=== PATIENT | male | born 1940 | race Caucasian/White ===

== ENCOUNTER 2022-04-04 21:33 | Inpatient (IN) | payer OTHER ==
[2022-04-04] MEDS ORDERED: ACETAMINOPHEN 500 MG TAB ONE (22:39)
[2022-04-04] MEDS ORDERED: NA CHLORIDE 0.9% 1,000 ML ONE (22:39)
[2022-04-04] MEDS ORDERED: CEFTRIAXONE 1000 MG/VIAL ONE (22:39)
[2022-04-04 23:23] LABS: Absolute Lymphocytes (CBC) 0.4 K/uL (0.7-4.9); Hematocrit 40.9 % (39.6-49.0); Lymphocytes % 5.7 % (15.3-44.8); MCV 96.6 fL (80-100); MPV 8.4 fL (7.6-11.3); Protime INR 1.04; RBC Red Blood Cell Count 4.24 M/uL (4.33-5.43)
[2022-04-04 23:39] LABS: Albumin 3.3 g/dL (3.4-5.0); Bilirubin Direct 0.2 mg/dL (0-0.2); Bilirubin Total 0.5 mg/dL (0.2-1.0); Magnesium 2.1 mg/dL (1.8-2.4); Potassium 3.8 mmol/L (3.5-5.1); Protein, Total 7.5 g/dL (6.4-8.2)
[2022-04-04 23:43] LABS: Troponin High Sensitivity 66.3 pg/mL (<58.9)
--- NOTE | 2022-04-05 00:02 | ER ---
Nurse's Notes [facility] Name: Shaheen Riddle Age: 82 yrs Sex: Male : 1940 Arrival Date: 04/04/2022 Time: 21:36 Bed 14 Private MD: Diagnosis: Altered mental status, unspecified;Fever, unspecified;Dysuria;Coronavirus infection, unspecified;SARS-associated coronavirus as the cause of diseases classified elsewhere;Dementia in other diseases classified elsewhere without behavioral disturbance Presentation: 04/04 21:47 Chief complaint: EMS states: toned out by stating PT has been confused and weak lg3 over the past 2 days. earlier this evening he was leaning against the wall at home and just slid down and landed on his butt. Coronavirus screen: Client denies travel out of the [place] in the last 14 days. At this time, the client does not indicate any symptoms associated with coronavirus-19. Ebola Screen: No symptoms or risks identified at this time. Initial Sepsis Screen: Does the patient meet any 2 criteria? Temp <36.0*C (96.8*F)) or > 38.3*C (100.9*F). Altered Mental Status. Yes Does the patient have a suspected source of infection? No. Patient's initial sepsis screen is negative. Risk Assessment: Do you want to hurt yourself or someone else? Patient reports no desire to harm self or others. Onset of symptoms was April 02, 2022. 21:47 Method Of Arrival: EMS: [facility] lg3 21:47 Acuity: [place] 3 lg3 Triage Assessment: 21:51 General: Appears in no apparent distress. comfortable, Behavior is calm, cooperative. lg3 Pain: Denies pain. EENT: No deficits noted. No signs and/or symptoms were reported regarding the EENT system. Neuro: Level of Consciousness is awake, obeys commands, confused, Oriented to person, place, situation, Speech is normal. Cardiovascular: No deficits noted. Denies chest pain, shortness of breath, Capillary refill < 3 seconds Clubbing of nail beds is absent JVD is absent Patient's skin is warm and dry. Respiratory: No deficits noted. Airway is patent Trachea midline Respiratory effort is even, unlabored, Respiratory pattern is regular, symmetrical, Breath sounds are clear bilaterally. Denies cough, shortness of breath labored breathing. GI: No deficits noted. No signs and/or symptoms were reported involving the gastrointestinal system. Abdomen is round non-distended, Bowel sounds present X 4 quads. : No deficits noted. No signs and/or symptoms were reported regarding the genitourinary system. Derm: No deficits noted. No signs and/or symptoms reported regarding the dermatologic system. Skin is intact, is healthy with good turgor, Skin is dry, Skin is normal, Skin temperature is hot. Musculoskeletal: Reports generalized weakness. Historical: - Allergies: 21:51 No Known Allergies; lg3 - Home Meds: 21:51 Unable to obtain [Active]; lg3 - PMHx: 21:51 Hypertensive disorder; lg3 - PSHx: 21:51 Unable to Obtain; lg3 - Immunization history:: Adult Immunizations unknown, unable to obtain. - Social history:: Smoking status: Patient reports the use of cigarette tobacco products, cigars, Patient uses alcohol, occasionally. Screenin:55 Abuse screen: Denies threats or abuse. Denies injuries from another. Nutritional lg3 screening: No deficits noted. Tuberculosis screening: No symptoms or risk factors identified. Fall Risk Fall in past 12 months (25 points). Secondary diagnosis (15 points) impaired mobility, Mental Status- Overestimates/Forgets Limitations (15 pts.). Total Webster Fall Scale indicates High Risk Score (45 or more points). Fall prevention measures have been instituted. Side Rails Up X 2 Frequent Obs/Assessments Occuring As available patient and family educated on Fall Prevention Program and Strategies. Assessment: 21:54 General: see triage assessment . lg3 23:24 Reassessment: Patient appears in no apparent distress at this time. No changes from lg3 previously documented assessment. Patient and/or family updated on plan of care and expected duration. Pain level reassessed. Patient is alert, oriented x 3, equal unlabored respirations, skin warm/dry/pink. 04/05 00:45 Reassessment: Patient appears in no apparent distress at this time. No changes from lg3 previously documented assessment. Patient and/or family updated on plan of care and expected duration. Pain level reassessed. Patient is alert, oriented x 3, equal unlabored respirations, skin warm/dry/pink. 00:49 General: attempted to call report. nurse not avaliable. lg3 Vital Signs: 04/04 21:47 BP 189 / 73; Pulse 56; Resp 18 S; Temp 102.4(O); Pulse Ox 98% on R/A; Weight 81.65 kg lg3 (R); Height 5 ft. 10 in. (177.80 cm) (R); Pain 0/10; 23:24 Temp 99.6(O); lg3 23:24 Temp 99.6(O); lg3 04/05 00:46 BP 178 / 84; Pulse 55; Resp 17 S; Pulse Ox 98% on R/A; lg3 04/04 21:47 Body Mass Index 25.83 (81.65 kg, 177.80 cm) lg3 ED Course: 04/04 21:36 Patient arrived in ED. lg3 21:46 Nathan [facility] MD is Attending Physician. harpal 21:47 Barb Ashton RN is Primary Nurse. lg3 21:51 Triage completed. lg3 21:51 Arm band placed on right wrist. lg3 21:55 Patient has correct armband on for positive identification. Placed in gown. Bed in low lg3 position. Call light in reach. Side rails up X2. Client placed on continuous cardiac and pulse oximetry monitoring. NIBP monitoring applied. medical record consultant on. Door closed. Noise minimized. 22:27 Lactate Sent. lg3 22:27 Blood Culture Adult (2) Sent. lg3 22:27 Lipase Sent. lg3 22:27 Flu Sent. lg3 22:27 SARS-COV-2 RT PCR (Document "Date of Onset" if Symptomatic) Sent. lg3 22:27 Basic Metabolic Panel Sent. lg3 22:27 CBC with Diff Sent. lg3 22:27 LFT's Sent. lg3 22:27 Magnesium Sent. lg3 22:27 NT PRO-BNP Sent. lg3 22:27 PT-INR Sent. lg3 22:27 Troponin HS Sent. lg3 22:27 Inserted saline lock: 20 gauge in right antecubital area, using aseptic technique. lg3 Blood collected. 22:40 XRAY Chest (1 view) In Process Unspecified. EDMS 23:09 Chest Abd Pelvis Wo Con In Process Unspecified. EDMS 04/05 00:00 Ozzie Waters MD is Hospitalizing Provider. harpal 00:59 No provider procedures requiring assistance completed. Patient admitted, IV remains in lg3 place. intact, No redness/swelling at site. Administered Medications: 04/04 22:30 Drug: NS 0.9% 1000 ml Route: IV; Rate: 1 bolus; Site: right antecubital; lg3 04/05 00:47 Follow up: Response: No adverse reaction; IV Status: Completed infusion; IV Intake: lg3 1000ml 04/04 22:30 Drug: Rocephin (cefTRIAXone) 1 grams Route: IV; Rate: per protocol; Site: right lg3 antecubital; 22:47 Follow up: Response: No adverse reaction; IV Status: Completed infusion; IV Intake: 09qdtq0 22:30 Drug: Tylenol 1000 mg Route: PO; lg3 23:24 Follow up: Temp 99.6 Oral; Response: No adverse reaction; Temperature is decreased lg3 04/05 00:25 Not Given (medication not avaliablee): Zithromax (azithromycin) 500 mg IVPB once over 1 lg3 hrs; mix in 250 mL NS 00:25 Drug: Pepcid (famotidine) 40 mg Route: IVP; Site: right antecubital; lg3 00:26 Follow up: Response: No adverse reaction lg3 00:25 Drug: Aspirin Chewable Tablet 162 mg Route: PO; lg3 00:26 Follow up: Response: No adverse reaction lg3 00:26 Not Given (medication not avaliablee): Bebtelovimab 175 mg IV at per protocol once; as lg3 a single dose Medication: 00:59 VIS not applicable for this client. lg3 Intake: 04/04 22:47 IV: 10ml; Total: 10ml. lg3 04/05 00:47 IV: 1000ml; Total: 1010ml. lg3 Outcome: 00:02 Decision to Hospitalize by Provider. harpal 00:59 Admitted to Tele accompanied by tech, via wheelchair, room 404, Report called to [facility] 00:59 Condition: stable 00:59 Instructed on the need for admit, Demonstrated understanding of instructions. 01:50 Patient left the ED. lg3 Signatures: Dispatcher [employer] EDNathan Valenzuela MD MD cha Gibson, Lacie, RN RN lg3
--- NOTE | 2022-04-05 00:03 | EDPHYS ---
Physician Documentation [facility] Name: Shaheen Riddle Age: 82 yrs Sex: Male : 1940 Arrival Date: 04/04/2022 Time: 21:36 Bed 14 Private MD: ED Physician Nathan Henderson HPI: 04/04 23:55 This 82 yrs old Male presents to ER via EMS with complaints of WEAK, FEVER , harpal FALL AND AMS. 23:55 FEVER , WEAK. The patient presents with confusion, decreased responsiveness. Onset: The harpal symptoms/episode began/occurred 2 day(s) ago. Possible causes: low blood sugar, sepsis, the patient has had a history of a fever. Associated signs and symptoms:. Current symptoms: In the emergency department the patient's symptoms are unchanged from the initial presentation, despite home interventions. The patient reports fever, that was measured at 102 degrees Fahrenheit. Modifying factors: there are no obvious modifying factors. Patient's baseline: Neuro: alert and fully oriented, orientated to person, place, time, Motor: no deficits, Ambulation: walks with assist only, uses walker, Speech: normal, normal for age. Historical: - Allergies: 21:51 No Known Allergies; lg3 - Home Meds: 21:51 Unable to obtain [Active]; lg3 - PMHx: 21:51 Hypertensive disorder; lg3 - PSHx: 21:51 Unable to Obtain; lg3 - Immunization history:: Adult Immunizations unknown, unable to obtain. - Social history:: Smoking status: Patient reports the use of cigarette tobacco products, cigars, Patient uses alcohol, occasionally. ROS: 23:56 Eyes: Negative for injury, pain, redness, and discharge, ENT: Negative for injury, harpal pain, and discharge, Neck: Negative for injury, pain, and swelling, Cardiovascular: Negative for chest pain, palpitations, and edema, Respiratory: Negative for shortness of breath, cough, wheezing, and pleuritic chest pain, Abdomen/GI: Negative for abdominal pain, nausea, vomiting, diarrhea, and constipation, Back: Negative for injury and pain, : Negative for injury, bleeding, discharge, and swelling, MS/Extremity: Negative for injury and deformity, Skin: Negative for injury, rash, and discoloration, Psych: Negative for depression, anxiety, suicide ideation, homicidal ideation, and hallucinations, Allergy/Immunology: Negative for hives, rash, and allergies, Endocrine: Negative for neck swelling, polydipsia, polyuria, polyphagia, and marked weight changes, Hematologic/Lymphatic: Negative for swollen nodes, abnormal bleeding, and unusual bruising. 23:56 Constitutional: Positive for chills, fatigue, fever, malaise. 23:56 Neuro: Positive for altered mental status, weakness. Exam: 23:56 Head/Face: Normocephalic, atraumatic. Eyes: Pupils equal round and reactive to light, harpal extra-ocular motions intact. Lids and lashes normal. Conjunctiva and sclera are non-icteric and not injected. Cornea within normal limits. Periorbital areas with no swelling, redness, or edema. ENT: Nares patent. No nasal discharge, no septal abnormalities noted. Tympanic membranes are normal and external auditory canals are clear. Oropharynx with no redness, swelling, or masses, exudates, or evidence of obstruction, uvula midline. Mucous membranes moist. Neck: Trachea midline, no thyromegaly or masses palpated, and no cervical lymphadenopathy. Supple, full range of motion without nuchal rigidity, or vertebral point tenderness. No Meningismus. Chest/axilla: Normal chest wall appearance and motion. Nontender with no deformity. No lesions are appreciated. Cardiovascular: Regular rate and rhythm with a normal S1 and S2. No gallops, murmurs, or rubs. Normal PMI, no JVD. No pulse deficits. Respiratory: Lungs have equal breath sounds bilaterally, clear to auscultation and percussion. No rales, rhonchi or wheezes noted. No increased work of breathing, no retractions or nasal flaring. Back: No spinal tenderness. No costovertebral tenderness. Full range of motion. Male : Normal genitalia with no discharge or lesions. Skin: Warm, dry with normal turgor. Normal color with no rashes, no lesions, and no evidence of cellulitis. 23:56 Cardiovascular: Rate: normal, Rhythm: regular, Pulses: Pulses are 4+ in bilateral radial, brachial, femoral, popliteal, posterior tibial and and dorsalis pedis arteries.. Heart sounds: normal, normal S1and S2, no S3 or S4, no murmur, no rub, no gallop, Edema: is not appreciated, JVD: is not appreciated. 23:56 ECG was reviewed by the Attending Physician. Vital Signs: 21:47 BP 189 / 73; Pulse 56; Resp 18 S; Temp 102.4(O); Pulse Ox 98% on R/A; Weight 81.65 kg lg3 (R); Height 5 ft. 10 in. (177.80 cm) (R); Pain 0/10; 23:24 Temp 99.6(O); lg3 23:24 Temp 99.6(O); lg3 04/05 00:46 BP 178 / 84; Pulse 55; Resp 17 S; Pulse Ox 98% on R/A; 3 04/04 21:47 Body Mass Index 25.83 (81.65 kg, 177.80 cm) lg3 MDM: 04/04 21:46 Patient medically screened. [facility] 04/04 21:50 Order name: Basic Metabolic Panel; Complete Time: 23:44 [facility] 04/04 21:50 Order name: CBC with Diff; Complete Time: 00:43 [facility] 04/04 21:50 Order name: LFT's; Complete Time: 23:44 [facility] 04/04 21:50 Order name: Magnesium; Complete Time: 23:44 [facility] 04/04 21:50 Order name: NT PRO-BNP; Complete Time: 23:44 [facility] 04/04 21:50 Order name: PT-INR; Complete Time: 23:30 [facility] 04/04 21:50 Order name: Troponin HS; Complete Time: 23:44 [facility] 04/04 21:50 Order name: XRAY Chest (1 view) [facility] 04/04 21:50 Order name: SARS-COV-2 RT PCR (Document "Date of Onset" if Symptomatic); Complete Time: [facility] 23:30 04/04 21:50 Order name: Flu; Complete Time: 00:08 [facility] 04/04 21:50 Order name: Lipase; Complete Time: 23:44 [facility] 04/04 21:50 Order name: Blood Culture Adult (2) [facility] 04/04 21:50 Order name: Lactate; Complete Time: 23:44 [facility] 04/04 23:35 Order name: Manual Differential; Complete Time: 00:43 EDMS 04/04 21:50 Order name: EKG; Complete Time: 21:51 [facility] 04/04 21:50 Order name: Cardiac monitoring; Complete Time: 21:56 [facility] 04/04 21:50 Order name: EKG - Nurse/Tech; Complete Time: 21:58 [facility] 04/04 21:50 Order name: IV Saline Lock; Complete Time: : [facility] 04/04 21:50 Order name: Labs collected and sent; Complete Time: : [facility] 04/04 21:50 Order name: O2 Per Protocol; Complete Time: : [facility] 04/04 21:50 Order name: O2 Sat Monitoring; Complete Time: : [facility] 04/04 23:09 Order name: Chest Abd Pelvis Wo Con EDMS EC: Rate is 56 beats/min. Rhythm is regular. QRS [place] is Normal. TN interval is normal. QRS harpal interval is normal. QT interval is normal. No Q waves. T waves are Normal. No ST changes noted. Clinical impression: Sinus bradycardia and No evidence of ischemia. Interpreted by me. Reviewed by me. Administered Medications: 22:30 Drug: NS 0.9% 1000 ml Route: IV; Rate: 1 bolus; Site: right antecubital; lg3 04/05 00:47 Follow up: Response: No adverse reaction; IV Status: Completed infusion; IV Intake: lg3 1000ml 04/04 22:30 Drug: Rocephin (cefTRIAXone) 1 grams Route: IV; Rate: per protocol; Site: right lg3 antecubital; 22:47 Follow up: Response: No adverse reaction; IV Status: Completed infusion; IV Intake: [id number] 22:30 Drug: Tylenol 1000 mg Route: PO; lg3 23:24 Follow up: Temp 99.6 Oral; Response: No adverse reaction; Temperature is decreased lg3 04/05 00:25 Not Given (medication not avaliablee): Zithromax (azithromycin) 500 mg IVPB once over 1 lg3 hrs; mix in 250 mL NS 00:25 Drug: Pepcid (famotidine) 40 mg Route: IVP; Site: right antecubital; lg3 00:26 Follow up: Response: No adverse reaction lg3 00:25 Drug: Aspirin Chewable Tablet 162 mg Route: PO; lg3 00:26 Follow up: Response: No adverse reaction lg3 00:26 Not Given (medication not avaliablee): Bebtelovimab 175 mg IV at per protocol once; as lg3 a single dose Disposition Summary: 04/05/22 00:02 Hospitalization Ordered Hospitalization Status: Inpatient Admission harpal Provider: Ozzie Waters cha Location: Telemetry/MedSurg (Inpatient) harpal Condition: Fair harpal Problem: new harpal Symptoms: have improved harpal Bed/Room Type: Standard harpal Room Assignment: 404(04/05/22 00:38) cg Diagnosis - Altered mental status, unspecified harpal - Fever, unspecified harpal - Dysuria harpal - Coronavirus infection, unspecified harpal - SARS-associated coronavirus as the cause of diseases classified elsewhere harpal - Dementia in other diseases classified elsewhere without behavioral disturbance harpal Forms: - Medication Reconciliation Form harpal - SBAR form harpal Signatures: Dispatcher [employer] EDMS Nathan [facility] MD MD cha Attema, Lee, DRYWALL FOREMAN-C DRYWALL FOREMAN-Kemi1 Lillian Ozuna, RN RN Barb Ashton RN RN lg3 Corrections: (The following items were deleted from the chart) 04/04 23:09 21:51 Stone Protocol+CT.RAD.BRZ ordered. EDMA EDMA 04/05 00:28 04/04 23:57 Dian ordered. lg3 lg3 04/05 00:38 00:02 harpal cg
[2022-04-05 00:12] LABS: Blood Morphology Comment NOT SEEN (NOT SEEN); Platelet Estimate ADEQ
[2022-04-05] MEDS ORDERED: ASPIRIN 81 MG CHEWABLE TABLET ONE (00:34)
[2022-04-05] MEDS ORDERED: ONDANSETRON 4 MG/2 ML VIAL IV PRN (01:29)
--- NOTE | 2022-04-05 01:51 | P.HP ---
Certification for Inpatient Patient admitted to: Observation With expected LOS: <2 Midnights Patient will require the following post-hospital care: None Practitioner: I am a practitioner with admitting privileges, knowledge of patient current condition, hospital course, and medical plan of care. Services: Services provided to patient in accordance with Admission requirements found in Title 42 Section 412.3 of the Code of Federal Regulations Patient History Date of Service: 04/05/22 Primary Care Provider: Dr. Vázquez Reason for admission: COVID-19, falls, elevated troponin History of Present Illness: 82-year-old male with history of hypertension, Alzheimer/dementia presents the emergency department for weakness/falls. His who is at bedside reports that twice in the last 2 days he is fallen at home as his legs "gave out on him". He was also noted to be febrile upon presentation to the emergency department. Code sepsis was called. Patient was evaluated in the emergency department his labs were significant for white blood cell count of 6.7 creatinine 1.33 GFR 54 glucose 116 high-sensitivity troponin 66.3 elevated BNP 6875 COVID-19 positive. Patient denies any constitutional or systemic symptoms of infection, did not realize that he was febrile at home. He is currently saturating 92 to 94% on room air. CT of chest abdomen pelvis was obtained in the emergency department which did reveal incidental finding of a thyroid nodule, this was relayed to patient and family. He was given aspirin, Rocephin, Tylenol, Pepcid and IV fluids in the emergency department. ED provider wishes to admit for further evaluation and management of COVID-19 viral illness: Repeated falls, elevated troponin. Allergies No Known Allergies Allergy (Unverified 04/05/22 01:28) - Past Medical/Surgical History Has patient received pneumonia vaccine in the past: Yes Diabetic: No -: hypertension -: Alzheimer/dementia -: None Psychosocial/ Personal History: Patient lives at home with his - Family History Father -: Other (see notes) Notes: ulcers Mother -: Cancer - Social History Smoking Status: Current every day smoker Alcohol use: Yes CD- Drugs: No Caffeine use: Yes Place of Residence: Home Review of Systems 10-point ROS is otherwise unremarkable General: Weakness Physical Examination - Vital Signs Temperature: 97.3 F Blood Pressure: 195/83 Pulse: 51 Respirations: 18 Pulse Ox (%): 91 - Physical Exam General: Alert, In no apparent distress, Oriented x3 HEENT: Atraumatic, PERRLA, Mucous membr. moist/pink, EOMI, Sclerae nonicteric Neck: Supple, 2+ carotid pulse no bruit, No LAD, Without JVD or thyroid abnormality Respiratory: Clear to auscultation bilaterally, Normal air movement Cardiovascular: Regular rate/rhythm, Normal S1 S2 Gastrointestinal: Normal bowel sounds, No tenderness Musculoskeletal: No tenderness Integumentary: No rashes Neurological: Normal speech, Normal strength at 5/5 x4 extr, Normal tone, Normal affect - Studies Laboratory Data (last 24 hrs) 04/04/22 22:15: PT 11.4, INR 1.04 04/04/22 22:15: WBC 6.70, Hgb 13.6, Hct 40.9, Plt Count 204 04/04/22 22:15: Sodium 141, Potassium 3.8, BUN 21 H, Creatinine 1.33 H, Glucose 116 H, Magnesium 2.1, Total Bilirubin 0.5, AST 41 H, ALT 27, Alkaline Phosphatase 84, Lipase 89 Microbiology Data (last 24 hrs): 04/04/22 22:24 Nasopharnyx Influenza Type A Antigen Screen - Final 04/04/22 22:24 Nasopharnyx Influenza Type B Antigen Screen - Final Assessment and Plan - Plan Assessment: COVID-19 viral illness Repeated falls Elevated troponin/BNP Incidental findingthyroid nodule Hypertension Alzheimer's dementia Plan: COVID-19 viral illness: Patient currently on room air, will continue to monitor daily over saturations. Tested positive for the first time last night, he is vaccinated with first 2 Pfizer shots. He denies any shortness of breath currently of the throat and this is likely contributing to his weakness, falls. Repeated falls: Patient evaluated by physical therapy, he reportedly uses a walker at home and had 2 falls in the past 2 days with his legs "giving out on him". Await recommendations. Elevated troponin/BNP: No known history of congestive heart failure does not appear to be grossly overloaded. Will obtain echocardiogram and cardiology consult we will trend troponin levels. Incidental findingthyroid nodule: Discussed with patient, daughter and at bedside regarding the need for outpatient ultrasound of the thyroid. Hypertension: Continue home medications once verified. Alzheimer's dementia: Continue home medications once verified. DVT PPX:Lovenox Code status: Full Discharge Plan: Home Plan to discharge in: 24 Hours - Advance Directives Does patient have a Living Will: No Does patient have a Durable POA for Healthcare: Yes - Code Status/Comfort Care Code Status Assessed: Yes (Full code) Critical Care: No Time Spent Managing Pts Care (In Minutes): 70
[2022-04-05 03:47] LABS: Absolute Lymphocytes (CBC) 0.9 K/uL (0.7-4.9); Hematocrit 37.4 % (39.6-49.0); Lymphocytes % 13.4 % (15.3-44.8); MCV 95.1 fL (80-100); MPV 7.8 fL (7.6-11.3); RBC Red Blood Cell Count 3.93 M/uL (4.33-5.43)
[2022-04-05 04:14] LABS: Albumin 2.8 g/dL (3.4-5.0); Bilirubin Total 0.4 mg/dL (0.2-1.0); Potassium 3.6 mmol/L (3.5-5.1); Protein, Total 6.2 g/dL (6.4-8.2)
[2022-04-05 04:23] LABS: Troponin High Sensitivity 67.3 pg/mL (<58.9)
[2022-04-05] MEDS: HYDRALAZINE HCL 20 MG/ML VIAL IV PRN ×3 (08:36→22:08)
[2022-04-05] MEDS: ENOXAPARIN 40 MG/0.4 ML SQ SCH (08:36)
[2022-04-05] MEDS: ASPIRIN EC 81 MG TAB PO SCH (08:36)
[2022-04-05] MEDS ORDERED: HYDRALAZINE HCL 25 MG TABLET PO ONE (13:20)
[2022-04-05] MEDS ORDERED: LOSARTAN POTASSIUM 50 MG TABLET PO ONE (13:30)
--- NOTE | 2022-04-05 13:40 | CON ---
History Of Present Illness: Admitted to Dr. Waters with COVID, was found to have elevated troponin. I was consulted. No cardiac symptoms reported. Has been having weakness and fever. Denied any nause a, vomiting, diaphoresis, PND, orthopnea, pedal edema, palpitations, or syncope. Past Medical History: Only includes hypertension. Allergies: NONE. Review of Systems: Negative. Social History: Negative. Family History: Negative. Medications: Listed by Dr. Waters. Physical Examination: General: He was hypertensive. Vital Signs: Blood pressure 180/80, sinus rhythm. No acute distress. Examination that was done the admitting physician was within normal limits. Diagnostic Data: Showed a troponin of 67. BNP is 6725. Rest of the blood work was unremarkable. E KG and chest x-ray are negative. Impression And Plan: 1.Elevated troponin and BNP secondary to COVID. Echocardiogram is pending. 2.Hypertension, needs to be better controlled. I will discuss the case further with Dr. Waters. This is not an acute coronary syndrome. This is demand ischemia with COVID. No plan for any further cardiac workup at this point, except for the echo. NATE/JOSE G Voice ID: [id number] Report ID: [id number]
--- NOTE | 2022-04-05 15:35 | RAD REPORT ---
EXAM DESCRIPTION: Chest Abd Pelvis Wo Con 04/04/2022 11:35 PM CDT CLINICAL HISTORY: 82 years, Male, flank COMPARISON: None TECHNIQUE: Multiple transaxial tomograms of the chest, abdomen and pelvis were performed from the kika ng bases to the symphysis pubis 5 mm slice thickness at 5 mm interval reconstruction, without adminis tration of IV and oral contrast. Multiplanar reformats in the sagittal and coronal plane were generated and reviewed. This exam was performed according to our departmental dose-optimization protocol, which includes auto mated exposure control, adjustment of the mA and/or kV according to patient size and/or use of iterat antonette reconstruction technique. FINDINGS: The lack of IV and oral contrast limits evaluation of solid organs, subtle lesions cannot be excluded. In addition the presence of upper extremity within the [id number] imaging limits the evaluation. Chest: There is prominence of the thyroid gland with right posterior deep right nodule measuring 1.8 x 1.9 cm on image 5 and left side measuring 1.7 x 1.7 cm on image 2. The lung demonstrate minimal dependent atelectatic changes. Mild elevation of the right hemidiaphragm . The trachea mainstem bronchus demonstrate to be within normal limits. There is no evidence for pleura l effusions. There is very minimal trace of pericardial effusion. The thoracic aorta demonstrate intimal calcification. No evidence for significant aneurysm. The heart is not enlarged. There are coronary artery calcifications. There is no significant mediastinal/or hilar lymphadenopathy. The axillary regions demonstrate to be clear. There are minimal bilateral gynecomastia. The bone windows demonstrate no significant fractures/or skeletal lesions. Abdomen and pelvis: Grossly the unopacified liver demonstrate a probable small cyst dome medial right hepatic lobe measuring approximately 1.3 cm on image 41. Otherwise the liver, gallbladder, pancreas, spleen and adrenal glands demonstrate to be within normal limits, no significant focal lesions were identified. The kidneys demonstrate grossly unremarkable. Minimal perinephric haziness suggesting fluid/or inflam mation There is no evidence for nephrolithiasis and/or hydronephrosis. There are vascular calcifica tions of the renal vessels. Grossly the unopacified stomach, small bowel and large bowel demonstrate to be within normal limits. There is no evidence for bowel dilatation/or free air. The appendix is unremarkable. There is minimal diverticulosis within the left site colon/sigmoid colon. The urinary bladder demonstrate to be within normal limits. The prostate gland is normal. The aorta d emonstrate atherosclerotic disease extending into the aortic bifurcation. There is no retroperitone al lymphadenopathy. There is no evidence for ascites. The bone windows demonstrate mild bony osteop enia with multilevel degenerative disc disease. IMPRESSION: No evidence for nephrolithiasis and/or hydronephrosis. Minimal perinephric haziness suggesting fluid/or inflammation. Minimal diverticulosis without evidence for acute diverticulitis. Mild bony osteopenia with multilevel degenerative disc disease. 1.9 cm incidental thyroid nodule. Recommend thyroid US. Minimal trace of pericardial effusion. Coronary artery calcifications. Probable small cyst dome medial right hepatic lobe. Electronically signed by: Cedrick Dacosta MD 04/04/2022 11:41 PM CDT Due to temporary technical issues with the PACS/Fluency reporting system, reports are being signed by the in house radiologists without review as a courtesy to insure prompt reporting. The interpreting radiologist is fully responsible for the content of the report.
[2022-04-05] MEDS: LOSARTAN POTASSIUM 50 MG TABLET PO SCH (20:42)
[2022-04-05] MEDS: HYDRALAZINE HCL 25 MG TABLET PO SCH (20:42)
[2022-04-05] MEDS: ATORVASTATIN 40 MG TAB PO SCH (20:42)
[2022-04-06 04:11] LABS: Bilirubin Total 0.7 mg/dL (0.2-1.0); Potassium 3.2 mmol/L (3.5-5.1); Protein, Total 6.7 g/dL (6.4-8.2)
[2022-04-06 04:17] LABS: Absolute Lymphocytes (CBC) 1.3 K/uL (0.7-4.9); Hematocrit 43.1 % (39.6-49.0); Lymphocytes % 19.4 % (15.3-44.8); MCV 93.9 fL (80-100); MPV 8.4 fL (7.6-11.3); RBC Red Blood Cell Count 4.59 M/uL (4.33-5.43)
[2022-04-06] MEDS: HYDRALAZINE HCL 20 MG/ML VIAL IV PRN ×2 (05:24→17:16)
--- NOTE | 2022-04-06 07:03 | ECHO ---
HEIGHT: 5 ft 10 in WEIGHT: 187 lb 1 oz DATE OF STUDY: 04/05/[address]: Misael Rangel NP 2-DIMENSIONAL: YES M.MODE: YES DOPPLER: YES COLOR FLOW: YES TDS: PORTABLE: YES DEFINITY: BUBBLE STUDY: DIAGNOSIS: ELEVATED BNP/ TROPONIN CARDIAC HISTORY: CATHERIZATION: NO SURGERY: NO PROSTHETIC VALVE: NO PACEMAKER: NO MEASUREMENTS (cm) DIASTOLIC (NORMALS) SYSTOLIC (NORMALS) IVSd 1.4 (0.6-1.2) LA Diam 4.4 (1.9-4.0) LVEF 60% LVIDd 5.4 (3.5-5.7) LVIDs 3.6 (2.0-3.5) %FS 32% LVPWd 1.4 (0.6-1.2) Ao Diam 3.3 (2.0-3.7) 2 DIMENSIONAL ASSESSMENT: RIGHT ATRIUM: NORMAL LEFT ATRIUM: ENLARGED RIGHT VENTRICLE: NORMAL LEFT VENTRICLE: LEFT VENTRICULAR HYPERTROPHY (MILD) TRICUSPID VALVE: MILD TRICUSPID REGURGITATION MITRAL VALVE: 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 LEFT ATRIAL ENLARGEMENT. 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 RECOMMEND TRANSESOPHAGEAL ECHOCARDIOGRAM. TECHNOLOGIST: HUGH RATLFIF
[2022-04-06] MEDS ORDERED: POTASSIUM 25 MEQ EFFERV TAB PO ONE (09:00)
[2022-04-06] MEDS ORDERED: cloNIDine HCL 0.1 MG TAB PO ONE (09:02)
[2022-04-06] MEDS: ASPIRIN EC 81 MG TAB PO SCH (09:40)
[2022-04-06] MEDS: HYDRALAZINE HCL 25 MG TABLET PO SCH ×3 (09:40→21:43)
[2022-04-06] MEDS: ENOXAPARIN 40 MG/0.4 ML SQ SCH (09:40)
[2022-04-06] MEDS: LOSARTAN POTASSIUM 50 MG TABLET PO SCH ×2 (09:40→21:43)
--- NOTE | 2022-04-06 10:41 | RAD REPORT ---
EXAM DESCRIPTION: RAD - Chest Single View - 04/04/2022 10:38 pm CLINICAL HISTORY: COUGH Chest pain. COMPARISON: No comparisons FINDINGS: Portable technique limits examination quality. Moderate bilateral pulmonary opacities likely pulmonary edema. The heart is mildly enlarged. No displ aced fractures. IMPRESSION: Mild CHF.
--- NOTE | 2022-04-06 12:54 | P.PN ---
Subjective Date of Service: 04/06/22 Patient states he is feeling better. Patient still has cough and congestion and his blood pressure is elevated. We will anticipate discharge tomorrow if his blood pressure stabilizes. Continue with medication for his cough and congestion. Hopefully this continues to improve over the next 7 to 10 days. Echocardiogram results pending. Review of Systems 10-point ROS is otherwise unremarkable Physical Examination - Vital Signs Temperature: 96.7 F Blood Pressure: 156/86 Pulse: 67 Respirations: 19 Pulse Ox (%): 98 - Physical Exam General: Alert, In no apparent distress HEENT: Atraumatic, PERRLA, EOMI Neck: Supple, JVD not distended Respiratory: Clear to auscultation bilaterally, Normal air movement Cardiovascular: Regular rate/rhythm, Normal S1 S2 Gastrointestinal: Normal bowel sounds, No tenderness Musculoskeletal: No tenderness Integumentary: No rashes Neurological: Normal speech, Normal tone, Normal affect Lymphatics: No axilla or inguinal lymphadenopathy - Studies Medications List Reviewed: Yes Assessment & Plan - Problems (Diagnosis) (1) Pneumonia due to COVID-19 virus Current Visit: Yes Status: Acute (2) Hypertensive urgency Current Visit: Yes Status: Acute (3) Generalized weakness Current Visit: Yes Status: Acute - Plan Plan: 1. Continue with cough medication and steroids 2. Strict blood pressure control; added blood pressure medications 3. Encourage patient to get out of bed into a chair with his meals and start ambulating 4. Anticipate discharge in a.m. if patient clinically is doing well - Advance Directives Does patient have a Living Will: No Does patient have a Durable POA for Healthcare: Yes
[2022-04-06] MEDS: ATORVASTATIN 40 MG TAB PO SCH (21:43)
[2022-04-07 00:10] VITALS: O2SAT 94
[2022-04-07 00:12] VITALS: BMI 25.8
[2022-04-07] MEDS: HYDRALAZINE HCL 20 MG/ML VIAL IV PRN (01:25)
--- NOTE | 2022-04-07 06:39 | EKG ---
Test Date: 2022-04-04 Test Time: 23:17:59 Dental Sales Representative: MEASUREMENT RESULTS: Intervals: Rate: 54 MT: 242 QRSD: 102 QT: 512 QTc: 485 [place]: P: 39 MT: 242 QRS: 82 T: 50 INTERPRETIVE STATEMENTS: Sinus bradycardia with 1st degree AV block Incomplete right bundle branch block Nonspecific ST and T wave abnormality Prolonged QT Abnormal ECG No previous ECG available for comparison Electronically Signed On 04-07-22 06:32:19 CDT by Jason Crouch
--- NOTE | 2022-04-07 06:39 | EKG ---
Test Date: 2022-04-04 Test Time: 23:18:28 Veneer Sample Maker: MEASUREMENT RESULTS: Intervals: Rate: 56 MO: 238 QRSD: 104 QT: 508 QTc: 490 [place]: P: 11 MO: 238 QRS: 82 T: 52 INTERPRETIVE STATEMENTS: Sinus bradycardia with 1st degree AV block with premature supraventricular complexes Incomplete right bundle branch block Prolonged QT Abnormal ECG No previous ECG available for comparison Electronically Signed On 04-07-22 06:32:18 CDT by Jason Crouch
[2022-04-07] MEDS ORDERED: POTASSIUM 25 MEQ EFFERV TAB PO ONE (07:54)
--- NOTE | 2022-04-07 08:25 | RAD REPORT ---
EXAM DESCRIPTION: Zi Single View04/07/2022 8:15 am CLINICAL HISTORY: Pleural effusion COMPARISON: April 04, 2022 FINDINGS: The lungs appear clear of acute infiltrate. The heart is normal size. Mild elevation of the right hemidiaphragm. No pleural effusion noted IMPRESSION: No acute abnormalities displayed
[2022-04-07 08:54] VITALS: BP 146/71; TEMP 97.6
[2022-04-07] MEDS: ENOXAPARIN 40 MG/0.4 ML SQ SCH (09:17)
[2022-04-07] MEDS: ASPIRIN EC 81 MG TAB PO SCH (09:18)
[2022-04-07] MEDS: HYDRALAZINE HCL 25 MG TABLET PO SCH (09:18)
[2022-04-07] MEDS: LOSARTAN POTASSIUM 50 MG TABLET PO SCH (09:18)
== END 2022-04-07 11:46 | disposition home health service (06) | DRG 177 ==
LOC: ER 21:33 → ERHOLD 04-05 00:38 → OBSVTOIN 04-05 00:38 → INTOOBSV 04-05 00:38 → 4TH 04-05 00:49 → OBSVTOIN 04-05 10:47
PROVIDERS: ADMIT Hospitalist; ATTEND Hospitalist
DX: U07.1 COVID-19 (principal); J12.82 Pneumonia due to coronavirus disease 2019; I24.8 Other forms of acute ischemic heart disease; I10 Essential (primary) hypertension; I16.0 Hypertensive urgency; E04.1 Nontoxic single thyroid nodule; G30.9 Alzheimer's disease, unspecified; F02.80 Dementia in other diseases classified elsewhere, unspecified severity, without behavioral disturbance, psychotic disturbance, mood disturbance, and anxiety; F17.210 Nicotine dependence, cigarettes, uncomplicated; R29.6 Repeated falls; R79.89 Other specified abnormal findings of blood chemistry
CPT/HCPCS: 36415; 71045; 71250; 74176; 80048; 80053; 80061; 80076; 82947; 83605; 83690; 83735; 83880; 84484; 85025; 85610; 87040; 87086; 87088; 87804; 93005; 93306; 96361; 96365; 96375; 97116; 97161; 97530; 99285; G0378; J0360; J1650; J7030; U0003

== ENCOUNTER 2022-05-22 22:29 | Inpatient (IN) | payer OTHER ==
--- OUTSIDE RECORDS SUMMARY | 2022-05-22 22:32 | XMS REPORT | Continuity of Care Document ---
:1940 Author Organization [facility] t Address [address] [place] [address] Care Team Providers Name Role Phone Asked, No Pcp Primary Care Physician Unavailable Caitlyn Butler MD Attending Clinician Payers Payer Name Policy Type Policy Number Effective Date Expiration Date S ource Problems This patient has no known problems. Allergies, Adverse Reactions, Alerts This patient has no known allergies or adverse reactions. Social History Social Habit Start Date Stop Date Quantity Comments Source Sex Assigned At [birth year] [facility] 00:00:00 00:00:00 Smoking Status Start Date Stop Date Source Tobacco smoking consumption unknown [facility] Medications This patient has no known medications. Procedures Procedure Date / Time Performed Performing Clinician Sour e MRI BRAIN WO CONTRAST 2022-02-12 22:09:33 Caitlyn Butler [facility] Plan of Care Planned Activity Planned Date Details Comments Source Future Scheduled 2022-05-18 HEPATITIS B VACCINES Met [facility] Test 13:21:16 (1 of 3 - 3-dose series) [code = HEPATITIS B VACCINES (1 of 3 - 3-dose series)] Future Scheduled 2022-05-18 COVID-19 VACCINE (#1) [facility] Test 13:21:16 [code = COVID-19 VACCINE (#1)] Future Scheduled 2022-05-18 SHINGLES VACCINES (1 Met [facility] Test 13:21:16 of 2) [code = SHINGLES VACCINES (1 of 2)] Future Scheduled 2022-05-18 65+ PNEUMOCOCCAL [facility] Test 13:21:16 VACCINE (1 - PCV) [code = 65+ PNEUMOCOCCAL VACCINE (1 - PCV)] Future Scheduled 2022-05-18 INFLUENZA VACCINE [facility] Test 13:21:16 [code = INFLUENZA VACCINE] Encounters Start End Encounter Admission Attending Care Care Encounter Source Date/Time Date/Time Type Type Clinicians Facility Department ID 2022-02-12 2022-02-12 [facility] Lizzy 1.2.840.1 [id number] Methodi 15:45:38 23:59:00 Encounter [place] [id number] 3.430.2.7 Hospit a .[id number] l .8 2022-02-12 2022-02-12 Outpatient LIZZY [facility] [id number] 00:00:00 00:00:[address] 2022-02-12 2022-02-12 Travel 1.2.840.1 [id number] Methodi 00:00:00 00:00:[id number] 3.430.2.7 0.2.7.3.698 spita .3.480313 084.8 l .8 2022-02-01 2022-02-01 Transcribe Lizzy, 1.2.840.1 [id number] Methodi 00:00:00 00:00:00 Orders Irfan [id number] 3.430.2.7 Hospit a .[id number] l .8 Results This patient has no known results.
[2022-05-22 23:28] LABS: Absolute Lymphocytes (CBC) 1.4 K/uL (0.7-4.9); Hematocrit 38.7 % (39.6-49.0); MCV 94.7 fL (80-100); MPV 8.4 fL (7.6-11.3); RBC Red Blood Cell Count 4.09 M/uL (4.33-5.43)
[2022-05-22] MEDS ORDERED: NA CHLORIDE 0.9% 500 ML ONE (23:29)
[2022-05-22 23:34] LABS: Protime INR 1.16
[2022-05-22 23:49] LABS: Albumin 2.7 g/dL (3.4-5.0); Bilirubin Total 1.4 mg/dL (0.2-1.0); Potassium 3.6 mmol/L (3.5-5.1); Protein, Total 6.8 g/dL (6.4-8.2)
[2022-05-22] MEDS ORDERED: CEFTRIAXONE 1000 MG/VIAL ONE (23:50)
[2022-05-22] MEDS ORDERED: NA CHLORIDE 0.9% 50 ML IV ONE (23:50)
[2022-05-22] MEDS ORDERED: VANCOMYCIN 1 GM/VIAL ONE (23:50)
[2022-05-22] MEDS ORDERED: NA CHLORIDE 0.9% 250 ML ONE (23:50)
[2022-05-22 23:52] LABS: Blood Morphology Comment NOT SEEN (NOT SEEN); Platelet Estimate ADEQ; Platelets, Giant OCC
--- NOTE | 2022-05-23 01:04 | ER ---
Nurse's Notes [facility] Name: Shaheen Riddle Age: 82 yrs Sex: Male : 1940 Arrival Date: 05/22/2022 Time: 22:38 Bed 14 Private MD: Diagnosis: Multiple falls, leukocytosis, urinary tract infection, weakness Presentation: 05/22 22:40 Chief complaint: EMS states: Fall X 3 today for weakness, no LOC , did not hit head. ke1 Coronavirus screen: Vaccine status:. Ebola Screen: No symptoms or risks identified at this time. Initial Sepsis Screen: Does the patient meet any 2 criteria? RR > 20 per min. HR > 90 bpm. Yes Does the patient have a suspected source of infection? Yes: Other: covid last week. Risk Assessment: Do you want to hurt yourself or someone else? Patient reports no desire to harm self or others. Onset of symptoms was May 22, 2022 at 08:00. 22:40 Method Of Arrival: EMS: [facility] ke1 22:40 Acuity: [place] 3 ke1 Triage Assessment: 22:47 General: Appears in no apparent distress. Behavior is confused. Pain: Denies pain. ke1 Neuro: Level of Consciousness is awake, alert, Oriented to person. Respiratory: Trachea Respiratory effort is even, unlabored, Respiratory pattern is regular, symmetrical. Historical: - Allergies: 22:45 No Known Allergies; ke1 - PMHx: 22:45 Hypertensive disorder; covid; ke1 Screenin:47 Abuse screen: Denies threats or abuse. Nutritional screening: No deficits noted. ke1 Tuberculosis screening: No symptoms or risk factors identified. Fall Risk Fall in past 12 months (25 points). Secondary diagnosis (15 points) dementia, IV access (20 points). Ambulatory Aid- None/Bed Rest/Nurse Assist (0 pts). Gait- Weak (10 pts.). Mental Status- Overestimates/Forgets Limitations (15 pts.). Total [place] Fall Scale indicates High Risk Score (45 or more points). Fall prevention measures have been instituted. Side Rails Up X 2 Placed Close to Nursing Station Frequent Obs/Assessments Occuring. Assessment: 23:50 Reassessment: Patient pulled out IV on R AC, site not bleeding. ke1 05/23 00:05 Reassessment: R W 22 G infiltrated, IV removed, pulse present on R radial. ke1 00:20 Reassessment: Patient always tries to pull out cords, mittens applied. ke1 01:00 Neuro: [place] Agitation-Sedation Scale (RASS): +4 Combative. ke1 01:13 Reassessment: R AC infiltrated , IV removed. ke1 03:27 Neuro: [place] Agitation-Sedation Scale (RASS): +2 Agitated. ke1 03:27 Reassessment: Patient awake trying to get out of bed. ke1 Vital Signs: 05/22 22:40 BP 154 / 96; Pulse 134; Resp 23; Temp 98.5(O); Pulse Ox 100% ; Weight 98.43 kg; Height ke1 5 ft. 10 in. (177.80 cm); 23:40 BP 120 / 106; Pulse 83; Resp 18; Pulse Ox 95% on R/A; ke1 05/23 01:27 BP 133 / 97; Pulse 88; Resp 16; Pulse Ox 96% on R/A; ke1 05/22 22:40 Body Mass Index 31.14 (98.43 kg, 177.80 cm) ke1 ED Course: 05/22 22:38 Patient arrived in ED. wm 22:40 Miki Jaimes, RN is Primary Nurse. ke1 22:40 Maintain EMS IV. Gauge \T\ site: 20 G R wrist. ke1 22:45 Triage completed. ke1 22:46 Elijah Velez MD is Attending Physician. kdr 23:24 Inserted saline lock: 20 gauge in right antecubital area, using aseptic technique. ke1 23:25 Blood Culture Adult (2) Sent. ke1 23:25 CBC with Diff Sent. ke1 23:25 CMP Sent. ke1 23:25 Lactate Sent. ke1 23:25 Protime (+inr) Sent. ke1 23:25 Ptt, Activated Sent. ke1 23:29 Notified ED physician of a critical lab result(s). wbc 23.7. tw5 23:41 Arm band placed on. ke1 23:45 Notified ED physician of a critical lab result(s). lac 2.2. tw5 05/23 00:10 Inserted saline lock: 20 gauge in right antecubital area, using aseptic technique. ke1 00:15 CT Head C Spine In Process Unspecified. EDMS 00:43 CXR XRAY In Process Unspecified. EDMS 01:02 Valentino Clay is Hospitalizing Provider. kdr 01:13 Inserted saline lock: 20 gauge in left antecubital area, using aseptic technique. ke1 01:16 Straight cath inserted, using sterile technique, 16 Fr. Specimen obtained. Returned ke1 tamy urine. 01:31 Yasemin Mcallister PA-C is PHCP. sb4 02:55 Flu Sent. ke1 03:49 No provider procedures requiring assistance completed. Patient admitted, IV remains in ke1 place. 03:50 Bed in low position. ke1 Administered Medications: 05/22 23:40 Drug: NS 0.9% 500 ml Route: IV; Rate: bolus; Site: right wrist; ke1 05/23 00:15 Drug: Rocephin - (cefTRIAXone) 1 grams Route: IVPB; Infused Over: 30 mins; Site: right ke1 antecubital; 00:32 Drug: vancoMYCIN 1 grams Route: IVPB; Infused Over: 2 hrs; Site: right antecubital; ke1 01:15 Drug: Geodon (ziprasidone) 10 mg Route: IM; Site: right deltoid; ke1 02:00 Follow up: Response: RASS: Drowsy (-1) ke1 Outcome: 01:03 Decision to Hospitalize by Provider. kdr 03:50 Admitted to Med/surg accompanied by tech. ke1 03:50 Condition: good 03:50 Instructed on unable to understand instructions 03:51 Patient left the ED. ke1 Signatures: Dispatcher [employer] EDMN Elijah Velez MD MD [facility] Shameka Lopez Tiffany tw5 Miki Jaimes RN RN ke1 Yasemin Mcallister PA-C PA-C sb4 Corrections: (The following items were deleted from the chart) 03:26 03:12 Response: RASS: Drowsy (-1) ke1 ke1
--- NOTE | 2022-05-23 01:04 | EDPHYS ---
Physician Documentation [facility] Name: Shaheen Riddle Age: 82 yrs Sex: Male : 1940 Arrival Date: 05/22/2022 Time: 22:38 Bed 14 Private MD: ED Physician Elijah Velez HPI: 05/23 02:09 This 82 yrs old Male presents to ER via EMS with complaints of Fall, Weakness. kdr 02:09 The patient presents to the emergency department with weakness of the entire body, kdr generalized weakness, difficulty standing, difficult walking. Onset: The symptoms/episode began/occurred gradually, at an unknown time. Context: occurred at home, occurred while the patient was. Associated signs and symptoms: The patient has no apparent associated signs or symptoms. Severity of symptoms: At their worst the symptoms were mild in the emergency department the symptoms are unchanged. The patient has experienced similar episodes in the past, a few times. The patient has not recently seen a physician. 02:11 Patient was sent from assisted living after having multiple falls. He has baseline kdr dementia and is not able to respond to questions regarding his near recent health. Patient is otherwise nontoxic-appearing and interacts with staff generally appropriately and follows directions.. Historical: - Allergies: 05/22 22:45 No Known Allergies; ke1 - PMHx: 22:45 Hypertensive disorder; covid; ke1 ROS: 05/23 02:11 Constitutional: Unable to obtain secondary to his baseline dementia there is no family kdr here Eyes: Negative for injury, pain, redness, and discharge, Neck: Negative for injury, pain, and swelling. Unable to obtain ROS due to baseline dementia. Exam: 02:12 Constitutional: This is a well developed, well nourished patient who is awake, alert, kdr and in no acute distress. Head/Face: Normocephalic, atraumatic. Eyes: Pupils equal round and reactive to light, extra-ocular motions intact. Lids and lashes normal. Conjunctiva and sclera are non-icteric and not injected. Cornea within normal limits. Periorbital areas with no swelling, redness, or edema. Neck: Trachea midline, no thyromegaly or masses palpated, and no cervical lymphadenopathy. Supple, full range of motion without nuchal rigidity, or vertebral point tenderness. No Meningismus. Chest/axilla: Normal chest wall appearance and motion. Nontender with no deformity. No lesions are appreciated. Cardiovascular: Regular rate and rhythm with a normal S1 and S2. No gallops, murmurs, or rubs. Normal PMI, no JVD. No pulse deficits. Respiratory: Lungs have equal breath sounds bilaterally, clear to auscultation and percussion. No rales, rhonchi or wheezes noted. No increased work of breathing, no retractions or nasal flaring. Abdomen/GI: Soft, non-tender, with normal bowel sounds. No distension or tympany. No guarding or rebound. No evidence of tenderness throughout. Back: No spinal tenderness. No costovertebral tenderness. Full range of motion. Skin: Warm, dry with normal turgor. Normal color with no rashes, no lesions, and no evidence of cellulitis. MS/ Extremity: Pulses equal, no cyanosis. Neurovascular intact. Full, normal range of motion. Psych: Awake, alert, with orientation to person, place and time. Behavior, mood, and affect are within normal limits. 02:12 Neuro: Orientation: to person, Mentation: slow to respond, confused, Motor: no acute changes, moves all fours. Vital Signs: 05/22 22:40 BP 154 / 96; Pulse 134; Resp 23; Temp 98.5(O); Pulse Ox 100% ; Weight 98.43 kg; Height ke1 5 ft. 10 in. (177.80 cm); 23:40 BP 120 / 106; Pulse 83; Resp 18; Pulse Ox 95% on R/A; ke1 05/23 01:27 BP 133 / 97; Pulse 88; Resp 16; Pulse Ox 96% on R/A; ke1 05/22 22:40 Body Mass Index 31.14 (98.43 kg, 177.80 cm) ke1 MDM: 01:03 Patient medically screened. kdr 02:13 Differential Diagnosis altered mental status, sepsis, flu. Data reviewed: vital signs, kdr nurses notes, lab test result(s), EKG, radiologic studies. Counseling: I had a detailed discussion with the patient and/or guardian regarding: the historical points, exam findings, and any diagnostic results supporting the discharge/admit diagnosis, the need for further work-up and treatment in the hospital. 05/22 22:46 Order name: Blood Culture Adult (2) kdr 05/22 22:46 Order name: CBC with Diff; Complete Time: 00:39 kdr 05/22 22:46 Order name: CMP; Complete Time: 00:39 kdr 05/22 22:46 Order name: Lactate; Complete Time: 00:39 kdr 05/22 22:46 Order name: Protime (+inr); Complete Time: 00:39 kdr 05/22 22:46 Order name: Ptt, Activated; Complete Time: 00:39 kdr 05/22 23:32 Order name: Manual Differential; Complete Time: 00:39 EDMS 05/22 23:57 Order name: Glucose, Ancillary Testing; Complete Time: 00:39 EDMS 05/23 00:18 Order name: Urine Culture kdr 05/23 01:49 Order name: Urine Dipstick-Ancillary; Complete Time: 01:31 EDMS 05/23 01:32 Order name: SARS-COV-2 Antigen Rapid sb4 05/23 01:44 Order name: Flu sb4 05/23 01:58 Order name: Urine Microscopic Only sb4 05/23 02:12 Order name: SARS-COV-2 Antigen Rapid; Complete Time: 02:22 EDMS 05/22 22:46 Order name: Accucheck; Complete Time: 23:47 kdr 05/22 22:46 Order name: Cardiac monitoring; Complete Time: 23:25 kdr 05/22 22:46 Order name: EKG - Nurse/Tech; Complete Time: 23:40 kdr 05/22 22:46 Order name: IV Saline Lock - Large Bore; Complete Time: 23:25 kdr 05/22 22:46 Order name: Labs collected and sent; Complete Time: 23:25 kdr 05/22 22:46 Order name: O2 Per Protocol; Complete Time: 23:25 kdr 05/22 22:46 Order name: O2 Sat Monitoring; Complete Time: 23:25 kdr 05/22 22:46 Order name: Urine Dipstick-Ancillary (obtain specimen); Complete Time: 01:50 kdr 05/22 23:25 Order name: CT Head C Spine kdr 05/23 00:18 Order name: CXR XRAY kdr 05/23 02:22 Order name: Lactate Sepsis 2 HR Follow-up; Complete Time: 03:43 EDMS 05/23 03:29 Order name: Influenza Screen (A ; Complete Time: 03:43 EDMS 05/22 22:46 Order name: Vital Signs; Complete Time: 23:25 kdr 05/23 00:53 Order name: Straight Cath - Urine; Complete Time: 01:16 ke1 Administered Medications: 05/22 23:40 Drug: NS 0.9% 500 ml Route: IV; Rate: bolus; Site: right wrist; ke1 05/23 00:15 Drug: Rocephin - (cefTRIAXone) 1 grams Route: IVPB; Infused Over: 30 mins; Site: right ke1 antecubital; 00:32 Drug: vancoMYCIN 1 grams Route: IVPB; Infused Over: 2 hrs; Site: right antecubital; ke1 01:15 Drug: Geodon (ziprasidone) 10 mg Route: IM; Site: right deltoid; ke1 02:00 Follow up: Response: RASS: Drowsy (-1) ke1 Disposition Summary: 05/23/22 01:03 Hospitalization Ordered Hospitalization Status: Observation kdr Provider: Valentino Clay Location: Telemetry/MedSurg (observation) kdr Condition: Fair kdr Problem: new kdr Symptoms: have improved kdr Bed/Room Type: Standard kdr Room Assignment: 209(05/23/22 02:26) wm Diagnosis - Multiple falls, leukocytosis, urinary tract infection, weakness kdr Forms: - Medication Reconciliation Form kdr - SBAR form kdr Signatures: Dispatcher [employer] EDMS Elijah Velez MD MD kdr Shameka Lopez Kouassi, RN RN ke1 Yasemin Mcallister PA-C PA-C sb4 Corrections: (The following items were deleted from the chart) 02:26 01:03 kdr wm
[2022-05-23] MEDS ORDERED: ZIPRASIDONE MESYLA 20 MG/VIAL IM ONE (01:45)
[2022-05-23] MEDS ORDERED: WATER FOR INJ,STERILE 10 ML ONE (01:46)
[2022-05-23 01:48] LABS: Urine Blood 2+ (Negative); Urine Glucose Negative (Negative); Urine Protein 1+ (Negative); Urine Specific Gravity 1.025 (1.005-1.030); Urine pH 5.5 (5.0-7.0)
[2022-05-23 02:11] LABS: SARS-CoV-2 Antigen Rapid Res Negative (Negative)
--- NOTE | 2022-05-23 02:15 | P.HP ---
Certification for Inpatient Patient admitted to: Inpatient With expected LOS: >2 Midnights Patient will require the following post-hospital care: None Practitioner: I am a practitioner with admitting privileges, knowledge of patient current condition, hospital course, and medical plan of care. Services: Services provided to patient in accordance with Admission requirements found in Title 42 Section 412.3 of the Code of Federal Regulations Patient History Date of Service: 05/23/22 Reason for admission: UTI, Sepsis, AMS History of Present Illness: Patient is an 82-year-old male with history of hypertension and Alzheimer/dementia who presented to the emergency department from assisted living facility for weakness/falls. Per EMS, patient has had 3 falls today. He did not hit his head, lose consciousness, nor is he on blood thinners. Patient has also been acting confused, not answering questions appropriately. He is oriented x 1 here, which is about his baseline. Code sepsis was called because he was tachycardic, tachypneic, and recently diagnosed with COVID. He tested negative here today. His labs are significant for WBC 23.7, lactate 2.2, urine positive for blood, protein, and trace leuk esterace. Head/cspine CT negative. He was given 1/2L fluid bolus, rocephin, and vancomycin in the ED. Repeat lactate is 1.4. Patient has been agitated and required geodon. He is admitted for further management. Allergies No Known Allergies Allergy (Unverified 04/05/22 01:28) Home Medications: Atorvastatin Calcium [Lipitor] 40 mg PO BEDTIME #30 tab 04/07/22 Benzonatate [Tessalon Perle] 200 mg PO TID #30 cap 04/07/22 Cefdinir [Omnicef] 300 mg PO BID #14 04/07/22 Hydralazine [Apresoline*] 25 mg PO TID #90 tab 04/07/22 Losartan Potassium [Cozaar*] 50 mg PO BID #60 tab 04/07/22 predniSONE [Deltasone] 20 mg PO BID #11 tab 04/07/22 - Past Medical/Surgical History Diabetic: No -: hypertension -: Alzheimer/dementia -: None Psychosocial/ Personal History: Patient lives at [facility]. - Family History Father -: Other (see notes) Notes: ulcers Mother -: Cancer - Social History Smoking Status: Never smoker Alcohol use: Yes CD- Drugs: No Caffeine use: Yes Place of Residence: Home Review of Systems is unable to be obtained Physical Examination - Physical Exam General: Oriented x1, Other (agitated) HEENT: Atraumatic, PERRLA, EOMI, Sclerae nonicteric Neck: Supple, 2+ carotid pulse no bruit, No LAD, Without JVD or thyroid abnormality Respiratory: Clear to auscultation bilaterally, Normal air movement Cardiovascular: Regular rate/rhythm, Normal S1 S2 Gastrointestinal: Normal bowel sounds, No tenderness Musculoskeletal: No tenderness Integumentary: No rashes Neurological: Normal speech, Dementia - Studies Laboratory Data (last 24 hrs) 05/22/22 23:01: PT 12.8 H, INR 1.16, APTT 30.7 05/22/22 23:01: Sodium 141, Potassium 3.6, BUN 20 H, Creatinine 1.27, Glucose 140 H, Total Bilirubin 1.4 H, AST 11 L, ALT 16, Alkaline Phosphatase 95 05/22/22 23:01: WBC 23.70 H*, Hgb 12.8 L, Hct 38.7 L, Plt Count 284 Assessment and Plan - Problems (Diagnosis) (1) UTI (urinary tract infection) Current Visit: Yes Status: Acute Qualifiers: Urinary tract infection type: acute cystitis Hematuria presence: with hematuria Qualified Code(s): N30.01 - Acute cystitis with hematuria (2) Sepsis Current Visit: Yes Status: Acute Qualifiers: Sepsis type: sepsis due to unspecified organism Sepsis acute organ dysfunction status: without acute organ dysfunction Qualified Code(s): A41.9 - Sepsis, unspecified organism (3) Hypertension Current Visit: Yes Status: Chronic Qualifiers: Hypertension type: primary hypertension Qualified Code(s): I10 - Essential (primary) hypertension (4) AMS (altered mental status) Current Visit: Yes Status: Acute Qualifiers: Altered mental status type: unspecified Qualified Code(s): R41.82 - Altered mental status, unspecified (5) Hypokalemia Current Visit: Yes Status: Acute (6) Dementia Current Visit: Yes Status: Acute Qualifiers: Dementia type: Alzheimer's Alzheimer's disease onset: unspecified onset Dementia severity: unspecified severity Dementia behavioral or psychological symptom: with agitation Qualified Code(s): G30.9 - Alzheimer's disease, unspecified; F02.811 - Dementia in other diseases classified elsewhere, unspecified severity, with agitation - Plan Continue rocephin for UTI/sepsis. Blood and urine cultures obtained Physical therapy consult Hilda SNELLN agitation Monitor and replete electrolytes per protocol Reconcile and continue home medications Lovenox for VTE prophylaxis Full code Discharge Plan: Home Plan to discharge in: Greater than 2 days - Advance Directives Does patient have a Living Will: No Does patient have a Durable POA for Healthcare: Yes - Code Status/Comfort Care Code Status Assessed: Yes (Full) Critical Care: No Time Spent Managing Pts Care (In Minutes): 50
[2022-05-23] MEDS ORDERED: ACETAMINOPHEN 500 MG TAB PO PRN (03:33)
[2022-05-23] MEDS ORDERED: ONDANSETRON 4 MG/2 ML VIAL IV PRN (03:33)
[2022-05-23] MEDS ORDERED: HALOPERIDOL LACT 5 MG/ML INJ IV PRN (03:33)
[2022-05-23 04:10] LABS: Urine Bacteria >50 /HPF (<20); Urine Mucus 4+ /HPF (None Seen); Urine RBC 21-50 /HPF (None Seen)
[2022-05-23 04:39] VITALS: BMI 31.1
[2022-05-23] MEDS ORDERED: HYDRALAZINE HCL 20 MG/ML VIAL IV ONE (04:58)
[2022-05-23 05:16] LABS: Absolute Lymphocytes (CBC) 1.6 K/uL (0.7-4.9); Hematocrit 35.5 % (39.6-49.0); Lymphocytes % 7.3 % (15.3-44.8); MPV 8.4 fL (7.6-11.3); RBC Red Blood Cell Count 3.74 M/uL (4.33-5.43)
[2022-05-23 05:31] LABS: Magnesium 1.6 mg/dL (1.8-2.4); Phosphorus 2.7 mg/dL (2.5-4.9); Potassium 3.2 mmol/L (3.5-5.1)
[2022-05-23] MEDS ORDERED: MAGNESIUM SULFATE 1 gm IVPB 1 GM/100 ML BAG IV ONE (05:55)
[2022-05-23] MEDS ORDERED: POTASSIUM 25 MEQ EFFERV TAB PO ONE ×2 (05:56→14:18)
[2022-05-23] MEDS: CEFTRIAXONE 1,000 MG in NA CHLORIDE 0.9% 50 ML IVPB SCH (08:11)
[2022-05-23] MEDS: ENOXAPARIN 40 MG/0.4 ML SQ SCH (08:11)
--- NOTE | 2022-05-23 12:06 | P.PN ---
Date of Service: 05/23/22 Patient seen and examined. He appears confused and not able to give any subjective complaint. Diagnosis; UTI Sepsis Dementia Plan: Continue IV Rocephin Follow cultures Neurochecks.
[2022-05-23] MEDS: LOSARTAN POTASSIUM 50 MG TABLET PO SCH ×2 (12:39→21:31)
[2022-05-23] MEDS: HYDRALAZINE HCL 25 MG TABLET PO SCH ×3 (12:39→21:31)
[2022-05-23] MEDS: ATORVASTATIN 40 MG TAB PO SCH (21:31)
--- NOTE | 2022-05-23 21:32 | RAD REPORT ---
EXAM DESCRIPTION: CT Head and Cervical Spine Without Intravenous Contrast CLINICAL HISTORY: The patient is 82 years old and is Male; Multiple falls, dementia TECHNIQUE: Axial computed tomography images of the head/brain and cervical spine without intravenous contrast. Sagittal and coronal reformatted images were created and reviewed. This CT exam was pe rformed using one or more of the following dose reduction techniques: automated exposure control, a djustment of the mA and/or kV according to patient size, and/or use of iterative reconstruction techn ique. COMPARISON: CT chest abdomen pelvis with contrast April 04, 2022. FINDINGS: Brain: Mild cerebral atrophy. Mild nonspecific white matter changes likely related to chronic microvascular ischemic diseas e. No hemorrhage. Ventricles: Unremarkable. No ventriculomegaly. Skull: No acute fracture. Sinuses: Unremarkable as visualized. No acute sinusitis. Mastoid air cells: Unremarkable as visualized. No mastoid effusion. Vertebrae: See below. Discs/spinal canal/neural foramina: Disc space narrowing with degenerative endplate changes at C5 -6. Moderate left neural foraminal narrowing at C3-4. Moderate bilateral neural foraminal narrowing at C5-6. Soft tissues: Unremarkable. Thyroid: Enlarged heterogeneous thyroid similar to prior. Consider thyroid ultrasound for further evaluation if clinically indicated. IMPRESSION: No acute intracranial abnormality. No acute findings in the cervical spine. Electronically signed by: Jj Bourgeois MD 05/23/2022 12:52 AM CDT Due to temporary technical issues with the PACS/Fluency reporting system, reports are being signed by the in house radiologists without review as a courtesy to insure prompt reporting. The interpreting radiologist is fully responsible for the content of the report.
--- NOTE | 2022-05-23 21:40 | RAD REPORT ---
EXAM DESCRIPTION: XR Chest, 1 View CLINICAL HISTORY: The patient is 82 years old and is Male; COUGH TECHNIQUE: Frontal view of the chest. COMPARISON: No relevant prior studies available. FINDINGS: Lungs: Prominent interstitial markings which may indicate interstitial edema. No consoli dation. Pleural space: Unremarkable. No pneumothorax. Heart: Unremarkable. Mediastinum: Unremarkable. Bones/joints: Unremarkable. IMPRESSION: Prominent interstitial markings which may indicate interstitial edema. No consolidation. Electronically signed by: Jj Bourgeois MD 05/23/2022 12:57 AM CDT Due to temporary technical issues with the PACS/Fluency reporting system, reports are being signed by the in house radiologists without review as a courtesy to insure prompt reporting. The interpreting radiologist is fully responsible for the content of the report.
[2022-05-24 03:53] LABS: Absolute Lymphocytes (CBC) 1.7 K/uL (0.7-4.9); Hematocrit 32.3 % (39.6-49.0); Lymphocytes % 9.4 % (15.3-44.8); MPV 8.9 fL (7.6-11.3)
[2022-05-24 04:09] LABS: Phosphorus 2.7 mg/dL (2.5-4.9); Potassium 3.4 mmol/L (3.5-5.1)
[2022-05-24] MEDS ORDERED: CEFTRIAXONE 1000 MG/VIAL ONE (07:30)
[2022-05-24] MEDS ORDERED: NA CHLORIDE 0.9% 50 ML ONE (07:39)
[2022-05-24] MEDS: HYDRALAZINE HCL 25 MG TABLET PO SCH ×3 (07:54→20:36)
[2022-05-24] MEDS: CEFTRIAXONE 1,000 MG in NA CHLORIDE 0.9% 50 ML IVPB SCH (07:54)
[2022-05-24] MEDS: LOSARTAN POTASSIUM 50 MG TABLET PO SCH ×2 (07:54→20:37)
[2022-05-24] MEDS: ENOXAPARIN 40 MG/0.4 ML SQ SCH (07:55)
[2022-05-24] MEDS ORDERED: POTASSIUM CL SA 10 MEQ TAB PO ONE (09:00)
--- NOTE | 2022-05-24 11:01 | P.PN ---
Subjective Date of Service: 05/24/22 Chief Complaint: UTI, Sepsis, AMS Patient states he is feeling much better today. He is eating well No fever. He denies any complaint. Physical Examination - Vital Signs Temperature: 98 F Blood Pressure: 171/85 Pulse: 72 Respirations: 18 Pulse Ox (%): 93 - Studies Microbiology Data (last 24 hrs): 05/22/22 23:01 Blood - Blood Anaerobic Blood Culture - Final Assessment And Plan - Current Problems (Diagnosis) (1) Acute metabolic encephalopathy Current Visit: Yes Status: Acute (2) Sepsis Current Visit: Yes Status: Acute Qualifiers: Sepsis type: sepsis due to unspecified organism Sepsis acute organ dysfunction status: without acute organ dysfunction Qualified Code(s): A41.9 - Sepsis, unspecified organism (3) UTI (urinary tract infection) Current Visit: Yes Status: Acute Qualifiers: Urinary tract infection type: acute cystitis Hematuria presence: with hematuria Qualified Code(s): N30.01 - Acute cystitis with hematuria (4) Dementia Current Visit: Yes Status: Acute Qualifiers: Dementia type: Alzheimer's Alzheimer's disease onset: unspecified onset Dementia severity: unspecified severity Dementia behavioral or psychological symptom: with agitation Qualified Code(s): G30.9 - Alzheimer's disease, unspecified; F02.811 - Dementia in other diseases classified elsewhere, unspecified severity, with agitation (5) Hypertension Current Visit: Yes Status: Chronic Qualifiers: Hypertension type: primary hypertension Qualified Code(s): I10 - Essential (primary) hypertension (6) BPH (benign prostatic hyperplasia) Current Visit: Yes Status: Acute - Plan Physical Exam General: Oriented x3, NAD. Respiratory: Clear to auscultation bilaterally, Normal air movement Cardiovascular: Regular rate/rhythm, Normal S1 S2 Gastrointestinal: Normal bowel sounds, No tenderness Musculoskeletal: No tenderness Integumentary: No rashes Neurological: Normal speech, Dementia Plan: Patient is clinically better. He is awake and interactive and eating well. Continue current antibiotic. Leukocytosis is slowly trending down. Urine culture is growing gram-negative rods. Blood cultures: No growth. Diet as tolerated. PT evaluation. Resume home medications for hypertension Resume tamsulosin for BPH. Monitor CBC to follow leukocytosis.
--- NOTE | 2022-05-24 12:14 | EKG ---
Test Date: 2022-05-22 Test Time: 23:37:08 Tip Fixer: ROULA MEASUREMENT RESULTS: Intervals: Rate: 126 ND: QRSD: 94 QT: 330 QTc: 477 Strawberry: P: ND: QRS: 82 T: 1 INTERPRETIVE STATEMENTS: Accelerated Junctional rhythm Incomplete right bundle branch block Nonspecific ST abnormality Abnormal ECG Compared to ECG 04/04/2022 23:18:28 Accelerated junctional rhythm now present ST (T wave) deviation now present Sinus bradycardia no longer present Atrial premature complex(es) no longer present First degree AV block no longer present Prolonged QT interval no longer present Electronically Signed On 05-24-22 12:12:16 STACKER ATTENDANT by Rafael Contreras
--- NOTE | 2022-05-24 17:06 | CON ---
History Of Present Illness: This is an 82-year-old male, coming in with altered mental status with significant past medical history of hypertension, Alzheimer dementia. The patient was brought in because of generalized weakness and falls, was found to have urinary tract infection. The patient denies any headache, nausea, vomiting, chest pain, abdominal pain, constipation, or diarrhea. Past Medical History: Hypertension, Alzheimer dementia. Social History: Nonsmoker, nondrinker. Family History: Noncontributory. Medications: Rocephin. See MAR for other medications. Allergies: NO KNOWN DRUG ALLERGIES. Review of Systems: A 10-point review was performed. Physical Examination: General: This is an 82-year-old male, lying in bed, not in any acute cardiopulmonary distress. Vital Signs: Temperature 97.7, pulse 85, respiration 19, blood pressure 161/74. HEENT: Unremarkable. Neck: Supple. Lungs: Basal crackles. Heart: S1, S2. Regular. Abdomen: Soft, nontender. Bowel sounds positive. Extremity: No edema. Laboratory Data: Chest x-ray shows prominent interstitial markings, may indicate interstitial edema. No consolidation noted. Laboratory Data: Shows WBC 18.2 down from 23.7, hemoglobin 11, platelets are 251. Chemistry shows sodium 140, potassium 3.4, chloride 109, bicarb 26, BUN 18, creatinine 0.9, glucose 103. Micro data growing gram-negative rods more than 100,000 in urine and blood cultures are negative for 24 hours, urine more than 20 to 50 WBC. Assessment And Plan: An 82-year-old male with urosepsis and leukocytosis with gram-negative rods most likely Escherichia coli. Consider Urology evaluation for prostatic enlargement and obstructive pattern f/u Urology as an outpatient. Continue antibiotics for 7 days cipro to oral antibiotic. We will follow the patient closely. Thank you, Dr. Clay for consult. NF/MODL Voice ID: [id number] Report ID: [id number] TALIA
--- NOTE | 2022-05-24 19:07 | P.PN ---
Date of Service: 05/25/22 Subjective: no acute events overnight feels he is improving strength returning, no dysuria confused ROS: 10 point ROS as noted above, otherwise negative Physical Exam: Gen: NAD, AOx1-2; dementia HEENT: normal conjunctiva, sclera anicteric CV: regular rate & rhythm, no edema Pulm: non-labored respirations, diminished bilaterally at bases Abd: soft, non-tender, non-distended Neuro: normal speech, normal affect, moves all extremities vitals reviewed Problem List Sepsis secondary to UTI Acute metabolic encephalopathy Dementia, moderate HTN BPH UTI/Sepsis Urine Cx (05/23): +GNR, klebsiella Blood (05/22): NGTD continue IV rocephin ID consulted clinically improving leukocytosis significantly elevated on admission, but improving diet as tolerated PT consulted resume home meds VTE: lovenox Code: full Dispo: back to [facility] / memory care unit. ~1 day Time Spent Managing Pts Care (In Minutes): 35
[2022-05-24] MEDS: DONEPEZIL HCL 5 MG TAB PO SCH (20:36)
[2022-05-24] MEDS: ATORVASTATIN 40 MG TAB PO SCH (20:36)
[2022-05-25 05:48] LABS: Absolute Lymphocytes (CBC) 1.1 K/uL (0.7-4.9); Hematocrit 38.2 % (39.6-49.0); Lymphocytes % 12.3 % (15.3-44.8); MCV 94.7 fL (80-100); MPV 8.3 fL (7.6-11.3); RBC Red Blood Cell Count 4.03 M/uL (4.33-5.43)
[2022-05-25 05:58] LABS: Potassium 3.5 mmol/L (3.5-5.1)
[2022-05-25 06:47] LABS: Magnesium 1.8 mg/dL (1.8-2.4); Phosphorus 3.2 mg/dL (2.5-4.9)
[2022-05-25] MEDS: LOSARTAN POTASSIUM 50 MG TABLET PO SCH ×2 (08:42→20:37)
[2022-05-25] MEDS: TAMSULOSIN 0.4 MG SR CAP PO SCH (08:42)
[2022-05-25] MEDS: HYDRALAZINE HCL 25 MG TABLET PO SCH ×3 (08:42→20:37)
[2022-05-25] MEDS: ENOXAPARIN 40 MG/0.4 ML SQ SCH (08:43)
[2022-05-25] MEDS: CEFTRIAXONE 1,000 MG in NA CHLORIDE 0.9% 50 ML IVPB SCH (08:43)
[2022-05-25] MEDS ORDERED: MAGNESIUM SULFATE 1 gm IVPB 1 GM/100 ML BAG IV ONE (09:00)
[2022-05-25] MEDS ORDERED: POTASSIUM CL SA 10 MEQ TAB PO ONE (09:00)
--- NOTE | 2022-05-25 17:02 | PN ---
Subjective: The patient is lying in bed. No new acute event. Denies any headache, nausea, vomiting , chest pain, abdominal pain, constipation, or diarrhea. Objective: Vital Signs: Reviewed. Lungs: Basal crackles. Heart: S1, S2. Regular. Abdomen: Soft, nontender. Bowel sounds present. Extremity: No edema. Laboratory Data: Shows WBC 9, hemoglobin 12.9, platelets 316. BUN 13, creatinine 0.9. Urine cultur es growing Klebsiella pneumoniae. Assessment And Plan: Urosepsis with dementia. Consider changing the patient to Cipro for 5 more day s orally and can be discharged home and to be followed by primary care. PAMELA/MODMontez Voice ID: [id number] Report ID: [id number]
[2022-05-25] MEDS: DONEPEZIL HCL 5 MG TAB PO SCH (20:37)
[2022-05-25] MEDS: ATORVASTATIN 40 MG TAB PO SCH (20:40)
[2022-05-26 07:53] LABS: Hematocrit 34.4 % (39.6-49.0); MCV 94.2 fL (80-100); MPV 7.8 fL (7.6-11.3); RBC Red Blood Cell Count 3.65 M/uL (4.33-5.43)
[2022-05-26 08:19] LABS: Magnesium 2.1 mg/dL (1.8-2.4); Potassium 3.4 mmol/L (3.5-5.1)
[2022-05-26] MEDS: CEFTRIAXONE 1,000 MG in NA CHLORIDE 0.9% 50 ML IVPB SCH (09:20)
[2022-05-26] MEDS: HYDRALAZINE HCL 25 MG TABLET PO SCH ×3 (09:21→22:09)
[2022-05-26] MEDS: ENOXAPARIN 40 MG/0.4 ML SQ SCH (09:21)
[2022-05-26] MEDS: LOSARTAN POTASSIUM 50 MG TABLET PO SCH ×2 (09:21→22:08)
[2022-05-26] MEDS: TAMSULOSIN 0.4 MG SR CAP PO SCH (09:21)
--- NOTE | 2022-05-26 16:18 | PN ---
Subjective: The patient is lying in bed. No new acute event. Denies any headache, nausea, vomiting , chest pain, abdominal pain, constipation, burning urination. Objective: Vital Signs: Temperature 97, pulse 71, respirations 18, blood pressure 174/83. Lungs: Clear to auscultation. Heart: S1, S2. Regular. Abdomen: Soft, nontender. Bowel sounds present. Extremity: No edema. Laboratory Data: Shows WBC 7.1, hemoglobin 11.6, platelets are 308. Chemistry shows BUN of 14, crea tinine 1. Assessment And Plan: Urinary tract infection secondary to Klebsiella pneumoniae. Recommend to disco ntinue his Rocephin and start the patient on Cipro for 5 more days. Monitor for signs of infection w ith WBC and fever trend. Consider Urology appointment as an outpatient to follow up on benign prosta tic hypertrophy versus strictures. We will follow the patient as needed. PAMELA/JOSE G Voice ID: [id number] Report ID: [id number]
--- NOTE | 2022-05-26 16:29 | P.DS ---
Admission Date: 05/23/22 Discharge Date: 05/26/22 Disposition: ROUTINE DISCHARGE Discharge Condition: GOOD Reason for Admission: UTI, Sepsis, AMS Consultations: Infectious Disease - Dr. Allen Brief History of Present Illness: 82yo M, PMH: HTN, Alzheimer/dementia who presented to ED from assisted living facility for weakness/falls. Per EMS, patient had 3 falls. No LOC, did not hit head. Reportedly with some increased confusion. AOx1, near baseline. Workup consistent with sepsis and UTI. Patient started on antibiotics, IV fluids, and admitted for further management. Hospital Course: Problem List Sepsis secondary to UTI Acute metabolic encephalopathy Dementia, moderate HTN BPH Patient presented with weakness and slight increased confusion. Found to have a UTI. Patient's symptoms and bloodwork significantly improved with IV antibiotics. He ambulated with a walker with PT >200ft. He remained afebrile, leukocytosis resolved. Urine culture grew klebsiella, blood cultures without growth. Infectious disease was consulted. He received IV rocephin during hospitalization and discharged on 5 days of Ciprofloxacin per ID recommendatiosn. Follow up with PCP within 1 week Vital Signs/Physical Exam: Temp Pulse Resp BP Pulse Ox 96.5 F L 83 16 162/62 H 95 05/26/22 12:00 05/26/22 12:00 05/26/22 12:00 05/26/22 12:00 05/26/22 12:00 Physical Exam: Gen: NAD, AOx1-2; dementia; pleasant HEENT: normal conjunctiva, sclera anicteric CV: regular rate & rhythm, no edema Pulm: non-labored respirations, diminished bilaterally at bases Abd: soft, non-tender, non-distended Neuro: normal speech, normal affect, moves all extremities Laboratory Data at Discharge: WBC 7.10 K/uL (4.3-10.9) 05/26/22 07:35 Hgb 11.6 g/dL (13.6-17.9) L D 05/26/22 07:35 Hct 34.4 % (39.6-49.0) L 05/26/22 07:35 Plt Count 308 K/uL (152-406) 05/26/22 07:35 PT 12.8 SECONDS (9.5-12.5) H 05/22/22 23:01 INR 1.16 05/22/22 23:01 APTT 30.7 SECONDS (24.3-36.9) 05/22/22 23:01 Sodium 142 mmol/L (136-145) D 05/26/22 07:35 Potassium 3.4 mmol/L (3.5-5.1) L 05/26/22 07:35 BUN 14 mg/dL (7-18) 05/26/22 07:35 Creatinine 1.00 mg/dL (0.55-1.3) 05/26/22 07:35 Glucose 104 mg/dL (74-106) 05/26/22 07:35 Phosphorus 3.2 mg/dL (2.5-4.9) 05/25/22 05:23 Magnesium 2.1 mg/dL (1.8-2.4) 05/26/22 07:35 Total Bilirubin 1.4 mg/dL (0.2-1.0) H 05/22/22 23:01 AST 11 U/L (15-37) L 05/22/22 23:01 ALT 16 U/L (12-78) 05/22/22 23:01 Alkaline Phosphatase 95 U/L (45-117) 05/22/22 23:01 Home Medications: Atorvastatin Calcium [Lipitor] 40 mg PO BEDTIME #30 tab 04/07/22 Hydralazine [Apresoline*] 25 mg PO TID #90 tab 04/07/22 Losartan Potassium [Cozaar*] 50 mg PO BID #60 tab 04/07/22 Donepezil HCl 1 tab PO BEDTIME 05/23/22 Tamsulosin HCl 1 tab PO DAILY 05/23/22 Ciprofloxacin HCl [Cipro] 500 mg PO BID 5 Days #10 tab 05/26/22 New Medications: Ciprofloxacin HCl [Cipro] 500 mg PO BID 5 Days #10 tab Physician Discharge Instructions: Patient presented with weakness and slight increased confusion. Found to have a UTI. Patient's symptoms and bloodwork significantly improved with IV antibiotics. He ambulated with a walker with PT >200ft. He remained afebrile, leukocytosis resolved. Urine culture grew klebsiella, blood cultures without growth. Infectious disease was consulted. He received IV rocephin during hospitalization and discharged on 5 days of Ciprofloxacin per ID recommendatiosn. Follow up with PCP within 1 week Time spent managing pt's care (in minutes): 45
--- NOTE | 2022-05-26 17:10 | P.PN ---
Date of Service: 05/26/22 Subjective: no acute events overnight improving no new/worsening symptoms voiding without issue ROS: 10 point ROS as noted above, otherwise negative Physical Exam: Gen: NAD, AOx1-2; dementia HEENT: normal conjunctiva, sclera anicteric CV: regular rate & rhythm, no edema Pulm: non-labored respirations, diminished bilaterally at bases Abd: soft, non-tender, non-distended Neuro: normal speech, normal affect, moves all extremities vitals reviewed Problem List Sepsis secondary to UTI Acute metabolic encephalopathy, resolved Dementia, moderate HTN BPH UTI/Sepsis Urine Cx (05/23): +GNR, klebsiella Blood (05/22): NGTD IV rocephin, change to cipro ID consulted - 5 days of PO ciprofloxacin clinically improving leukocytosis significantly elevated on admission, but now normal remains afebrile diet as tolerated PT consulted - ambulated 300ft resumed home meds patient lives at assisted living intially plan to dc back to assisted living today, under impression he was in memory care unit attempted to call this morning prior to discharge, no answer daughter called back, stating patient is not in memory care unit yet, plan was to transition to the unit tomorrow feel he is too unsafe to be at his apartment, family unable to care for him, risk of wandering off cancel discharge due to patient safety; plan for dc to memory care unit tomorrow VTE: lovenox Code: full Dispo: back to [facility] / memory care unit. tomorrow Time Spent Managing Pts Care (In Minutes): 35
[2022-05-26] MEDS ORDERED: POTASSIUM 25 MEQ EFFERV TAB PO ONE (20:14)
[2022-05-26] MEDS: DONEPEZIL HCL 5 MG TAB PO SCH (22:08)
[2022-05-26] MEDS: CIPROFLOXACIN HCL 500 MG TAB PO SCH (22:08)
[2022-05-26] MEDS: ATORVASTATIN 40 MG TAB PO SCH (22:11)
[2022-05-27 06:01] LABS: Potassium 3.9 mmol/L (3.5-5.1)
[2022-05-27] MEDS: LOSARTAN POTASSIUM 50 MG TABLET PO SCH ×2 (09:20→21:30)
[2022-05-27] MEDS: ENOXAPARIN 40 MG/0.4 ML SQ SCH (09:20)
[2022-05-27] MEDS: TAMSULOSIN 0.4 MG SR CAP PO SCH (09:20)
[2022-05-27] MEDS: HYDRALAZINE HCL 25 MG TABLET PO SCH ×3 (09:20→21:29)
[2022-05-27] MEDS: CIPROFLOXACIN HCL 500 MG TAB PO SCH ×2 (09:20→21:29)
[2022-05-27] MEDS: ATORVASTATIN 40 MG TAB PO SCH (21:29)
[2022-05-27] MEDS: DONEPEZIL HCL 5 MG TAB PO SCH (21:29)
--- NOTE | 2022-05-27 21:56 | P.PN ---
Date of Service: 05/27/22 Subjective: no acute events overnight seems to be near baseline dementia denies any dysuria, no nausea/vomiting ROS: 10 point ROS as noted above, otherwise negative Physical Exam: Gen: NAD, AOx1; dementia HEENT: normal conjunctiva, sclera anicteric CV: regular rate & rhythm, no edema Pulm: non-labored respirations, diminished bilaterally at bases Abd: soft, non-tender, non-distended Neuro: normal speech, normal affect, moves all extremities vitals reviewed Problem List Sepsis secondary to UTI Acute metabolic encephalopathy, resolved Dementia, moderate HTN BPH UTI/Sepsis Urine Cx (05/23): +GNR, klebsiella Blood (05/22): NGTD IV rocephin, change to cipro 05/26 ID consulted - 5 days of PO ciprofloxacin clinically improved leukocytosis significantly elevated on admission, but now normal remains afebrile tolerating diet PT consulted - ambulated 300ft with walker resumed home meds patient lives at assisted living intially plan to dc back to assisted living today, under impression he was in memory care unit attempted to call this morning prior to discharge, no answer daughter called back, stating patient is not in memory care unit yet, plan was to transition to the unit 05/27 feel he is too unsafe to be at his apartment, family unable to care for him, risk of wandering off canceled discharge on 05/26 due to patient safety; plan for dc to memory care unit tomorrow discharge order in today, apparently facility not ready for patient VTE: lovenox Code: full Dispo: back to [facility] / memory care unit. tomorrow? Time Spent Managing Pts Care (In Minutes): 35
[2022-05-28 00:15] VITALS: O2SAT 93
[2022-05-28] MEDS: LOSARTAN POTASSIUM 50 MG TABLET PO SCH (09:18)
[2022-05-28] MEDS: TAMSULOSIN 0.4 MG SR CAP PO SCH (09:18)
[2022-05-28] MEDS: CIPROFLOXACIN HCL 500 MG TAB PO SCH (09:18)
[2022-05-28] MEDS: HYDRALAZINE HCL 25 MG TABLET PO SCH ×2 (09:19→13:04)
[2022-05-28] MEDS: ENOXAPARIN 40 MG/0.4 ML SQ SCH (09:19)
[2022-05-28 13:15] VITALS: BP 145/70; TEMP 96.7
--- NOTE | 2022-05-28 16:12 | PN ---
Subjective: Patient lying in bed. Denies any headache, nausea, vomiting, chest pain, abdominal pain , constipation, or diarrhea. Objective: Vital Signs: Temperature 98, pulse 61, respirations 16, blood pressure 136/57. Lungs: Clear to auscultation. Heart: S1, S2. Regular. Abdomen: Soft, nontender. Bowel sounds present. Extremities: No edema. Assessment And Plan: Urinary tract infection secondary to urosepsis secondary to Klebsiella pneumoni ae, currently on Cipro. Anemia of chronic disease. Moderate protein-calorie malnourishment. Contin ue supportive care and continue hydration. We will follow patient as needed. NF/MODL Voice ID: [id number] Report ID: [id number]
--- NOTE | 2022-05-28 22:00 | P.PN ---
Date of Service: 05/28/22 Continued improvement, stable Patient discharged 05/28 Please refer to DC summary on 05/26
== END 2022-05-28 15:40 | DRG 871 ==
LOC: ER 22:29 → ERHOLD 05-23 02:00 → 2ND 05-23 03:43
PROVIDERS: ADMIT Internal Medicine; ATTEND Hospitalist
DX: A41.9 Sepsis, unspecified organism (principal); G93.41 Metabolic encephalopathy; N30.01 Acute cystitis with hematuria; F02.B11 Dementia in other diseases classified elsewhere, moderate, with agitation; E44.0 Moderate protein-calorie malnutrition; G30.9 Alzheimer's disease, unspecified; I10 Essential (primary) hypertension; E87.6 Hypokalemia; D63.8 Anemia in other chronic diseases classified elsewhere; N40.0 Benign prostatic hyperplasia without lower urinary tract symptoms; B96.1 Klebsiella pneumoniae [K. pneumoniae] as the cause of diseases classified elsewhere; Z86.16 Personal history of COVID-19; Z68.31 Body mass index [BMI] 31.0-31.9, adult; Z79.52 Long term (current) use of systemic steroids; Z79.899 Other long term (current) drug therapy; Z20.822 Contact with and (suspected) exposure to COVID-19; W18.30XA Fall on same level, unspecified, initial encounter; Z91.81 History of falling; Y92.9 Unspecified place or not applicable
CPT/HCPCS: 36415; 51702; 70450; 71045; 72125; 80048; 80053; 81003; 81015; 82947; 83605; 83735; 84100; 84132; 85025; 85027; 85610; 85730; 87040; 87077; 87086; 87088; 87186; 87804; 87811; 93005; 96372; 96374; 96375; 97116; 97161; 97530; 99285; J0360; J1630; J1650; J3370; J3475; J3486; J7040; J7050

== ENCOUNTER 2022-09-25 18:57 | Observation (INO) | payer OTHER ==
--- OUTSIDE RECORDS SUMMARY | 2022-09-25 19:00 | XMS REPORT | Continuity of Care Document ---
:1940 Author Organization [facility] t Address [address]. [address] [place] [address] Care Team Providers Name Role Phone Asked, [...] Comments Source Sex Assigned At [birth year] [facility] 00:00:00 00:00:00 Smoking Status Start Date Stop Date Source Tobacco smoking consumption unknown [facility] Medications This patient has no known medications. Procedures Procedure Date / Time Performed Performing Clinician Vonda e MRI BRAIN WO CONTRAST 2022-02-12 22:09:33 Caitlyn Butler [facility] Plan of Care Planned Activity Planned Date Details Comments Source Future Scheduled 2022-06-29 COVID-19 VACCINE (#1) [facility] Test 12:32:04 [code = COVID-19 VACCINE (#1)] Future Scheduled 2022-06-29 SHINGLES VACCINES ([address] [facility] [place] [place] Test 12:32:04 of 2) [code = SHINGLES VACCINES (1 of 2)] Future Scheduled 2022-06-29 65+ PNEUMOCOCCAL [facility] Test 12:32:04 VACCINE (1 - PCV) [code = 65+ PNEUMOCOCCAL VACCINE (1 - PCV)] Future Scheduled 2022-06-29 INFLUENZA VACCINE Method [facility] Test 12:32:04 [code = INFLUENZA VACCINE] Future Scheduled 2022-05-18 SHINGLES VACCINES ([address] [facility] [place] [place] Test 13:21:16 of 2) [code = SHINGLES VACCINES (1 of 2)] Future Scheduled 2022-05-18 65[facility] 13:21:16 VACCINE (1 - PCV) [code = 65+ PNEUMOCOCCAL VACCINE (1 - PCV)] Future Scheduled 2022-05-18 INFLUENZA VACCINE Method [facility] Test 13:21:16 [code = INFLUENZA VACCINE] Future Scheduled 2022-05-18 HEPATITIS B VACCINES Met [facility] [place] [place] Test 13:21:16 (1 of 3 - 3-dose series) [code = HEPATITIS B VACCINES (1 of 3 - 3-dose series)] Future Scheduled 2022-05-18 COVID-19 VACCINE (#1) [facility] Test 13:21:16 [code = COVID-19 VACCINE (#1)] Encounters Start End Encounter Admission Attending Care Care Encounter Source Date/Time Date/Time Type Type Clinicians Facility Department ID 2022-02-12 2022-02-12 [facility], 1.2.840.1 [id number] Methodi 15:45:38 23:59:00 Encounter Caitlyn 42619.1.[address] 3.430.2.7 Hospit a .3.594220 l .8 2022-02-12 2022-02-12 [facility], 1.2.840.1 [id number] Methodi 15:45:38 23:59:00 Encounter Caitlyn [id number] 3.430.2.7 Hospit a .3.117722 l .8 2022-02-12 2022-02-12 Travel 1.2.840.1 1.2.541.619 [id number] Methodi 00:00:00 00:00:[address] 3.430.2.7 0.2.7.3.698 Ho spita .3.305722 084.8 l .8 2022-02-12 2022-02-12 Travel 1.2.840.1 1.2.066.912 [id number] Methodi 00:00:00 00:00:[address] 3.430.2.7 0.2.7.3.698 Ho spita .3.485236 084.8 l .8 2022-02-01 2022-02-01 Transcribe Luke, 1.2.840.1 [id number] Methodi 00:00:00 00:00:00 Orders Irfan [address]50.1.[address] 3.430.2.7 Hospit a .3.841210 l .8 2022-02-01 2022-02-01 Transcribe Luke, 1.2.840.1 [id number] Methodi 00:00:00 00:00:00 Orders Irfan [address]04.1.[address] 3.430.2.7 Hospit a .3.769633 l .8 Results This patient has no known results.
[2022-09-25 19:27] LABS: Absolute Lymphocytes (CBC) 1.5 K/uL (0.7-4.9); Hematocrit 35.2 % (39.6-49.0); Lymphocytes % 18.9 % (15.3-44.8); MPV 7.6 fL (7.6-11.3); RBC Red Blood Cell Count 3.87 M/uL (4.33-5.43)
[2022-09-25 19:28] LABS: Protime INR 1.06
--- NOTE | 2022-09-25 19:42 | RAD REPORT ---
EXAM DESCRIPTION: CT - Head Brain Wo Cont - 09/25/2022 7:34 pm CLINICAL HISTORY: ams, syncope COMPARISON: No comparisons TECHNIQUE: All CT scans are performed using dose optimization technique as appropriate and may inclu de automated exposure control or mA/KV adjustment according to patient size. FINDINGS: No intracranial hemorrhage, hydrocephalus or extra-axial fluid collection.No areas of brai n edema or evidence of midline shift. Cerebral atrophy with mild to moderate chronic small vessel isc hemic changes. Intracranial atherosclerosis . The paranasal sinuses and mastoids are clear. The calvarium is intact. IMPRESSION: No acute intracranial abnormality.
[2022-09-25 19:46] LABS: Albumin 2.8 g/dL (3.4-5.0); Bilirubin Direct 0.2 mg/dL (0-0.2); Bilirubin Total 0.7 mg/dL (0.2-1.0); Magnesium 2.1 mg/dL (1.6-2.4); Potassium 3.9 mmol/L (3.5-5.1); Protein, Total 6.3 g/dL (6.4-8.2); Troponin High Sensitivity 14.6 pg/mL (<58.9)
--- NOTE | 2022-09-25 19:57 | RAD REPORT ---
EXAM DESCRIPTION: RAD - Chest Single View - 09/25/2022 7:45 pm CLINICAL HISTORY: ams, syncope COMPARISON: 05/23/2022 FINDINGS: Lines: None. Lungs: No evidence of edema or pneumonia. Low lung volumes. Pleural: No significant pleural effusions or pneumothorax. Cardiac: The heart size is within normal limits. Mediastinum: Within normal limits. Bones: No acute fractures. Other: None IMPRESSION: No acute cardiopulmonary disease.
[2022-09-25] MEDS ORDERED: NA CHLORIDE 0.9% 1,000 ML ONE (21:28)
[2022-09-25] MEDS ORDERED: NA CHLORIDE 0.9% 500 ML ONE (21:29)
[2022-09-25 21:47] LABS: Urine Blood Negative (Negative); Urine Glucose Negative (Negative); Urine Protein Negative (Negative); Urine Specific Gravity 1.015 (1.005-1.030); Urine pH 5.5 (5.0-7.0)
--- NOTE | 2022-09-25 21:49 | P.HP ---
Certification for Inpatient Patient admitted to: Observation With expected LOS: <2 Midnights Patient will require the following post-hospital care: None Practitioner: I am a practitioner with admitting privileges, knowledge of patient current condition, hospital course, and medical plan of care. Services: Services provided to patient in accordance with Admission requirements found in Title 42 Section 412.3 of the Code of Federal Regulations Patient History Date of Service: 09/25/22 Reason for admission: Weakness, Near Syncope History of Present Illness: Patient is an 82-year-old male with history of hypertension, BPH, anemia and Alzheimer/dementia who presented to the emergency department from assisted living facility via EMS with decreased responsiveness. [facility] called EMS because patient was unresponsive, not even to sternal rub. When EMS transferred him, he was awake and responding appropriately. Patient does not recall the events of the day. He denies feeling badly in any way. His workup is unremarkable today- head CT negative, urine negative, no WBC. BUN is slightly elevated. ED provider wishes to admit patient for observation. Allergies No Known Allergies Allergy (Unverified 04/05/22 01:28) Home medications list reviewed: Yes Home Medications: Atorvastatin Calcium [Lipitor] 40 mg PO BEDTIME #30 tab 04/07/22 Hydralazine [Apresoline*] 25 mg PO TID #90 tab 04/07/22 Losartan Potassium [Cozaar*] 50 mg PO BID #60 tab 04/07/22 Donepezil HCl 1 tab PO BEDTIME 05/23/22 Tamsulosin HCl 1 tab PO DAILY 05/23/22 Ciprofloxacin HCl [Cipro] 500 mg PO BID 5 Days #10 tab 05/26/22 - Past Medical/Surgical History Diabetic: No -: hypertension -: Alzheimer/dementia -: None Psychosocial/ Personal History: [facility] lives at [facility]. - Family History Father -: Other (see notes) Notes: ulcers Mother -: Cancer - Social History Smoking Status: Never smoker Alcohol use: Yes CD- Drugs: No Caffeine use: Yes Place of Residence: Home Review of Systems Unremarkable Physical Examination - Vital Signs Temperature: 97 F Blood Pressure: 134/65 Pulse: 65 Respirations: 18 Pulse Ox (%): 98 - Physical Exam General: Alert, In no apparent distress HEENT: Atraumatic, EOMI, Sclerae nonicteric Neck: Supple, 2+ carotid pulse no bruit Respiratory: Clear to auscultation bilaterally, Normal air movement Cardiovascular: Regular rate/rhythm, Normal S1 S2 Gastrointestinal: Normal bowel sounds, No tenderness Musculoskeletal: No tenderness Integumentary: No rashes Neurological: Normal speech, Normal affect - Studies Laboratory Data (last 24 hrs) 09/25/22 19:23: Lipase Cancelled 09/25/22 19:16: PT 11.7, INR 1.06 09/25/22 19:16: WBC 8.20, Hgb 11.8 L, Hct 35.2 L, Plt Count 256 09/25/22 19:16: Sodium 143, Potassium 3.9, BUN 25 H, Creatinine 1.25, Glucose 193 H, Magnesium 2.1, Total Bilirubin 0.7, AST 28, ALT 40, Alkaline Phosphatase 113, Lipase 23 Assessment and Plan - Problems (Diagnosis) (1) Dehydration Current Visit: Yes Status: Acute (2) BPH (benign prostatic hyperplasia) Current Visit: Yes Status: Chronic Qualifiers: Lower urinary tract symptom presence: unspecified whether lower urinary tract symptoms present Qualified Code(s): N40.0 - Benign prostatic hyperplasia without lower urinary tract symptoms (3) Dementia Current Visit: Yes Status: Chronic Qualifiers: Dementia type: Alzheimer's Alzheimer's disease onset: unspecified onset Dementia severity: unspecified severity Dementia behavioral or psychological symptom: with agitation Qualified Code(s): G30.9 - Alzheimer's disease, unspecified; F02.811 - Dementia in other diseases classified elsewhere, unspecified severity, with agitation (4) Hypertension Current Visit: Yes Status: Chronic Qualifiers: Hypertension type: primary hypertension Qualified Code(s): I10 - Essential (primary) hypertension - Plan Patient is admitted for observation. Unclear why patient was "unresponsive" earlier or if he ever truly was. Will continue to monitor patient and hydrate him with IVF. Blood sugar, vitals, labs all within normal limits. Patient acting and answering questions appropriately. Moves all 4 extremities. Physical therapy consulted. Discharge Plan: Usp Plan to discharge in: 24 Hours - Advance Directives Does patient have a Living Will: Yes Does patient have a Durable POA for Healthcare: Yes - Code Status/Comfort Care Code Status Assessed: Yes Code Status: Full Code Physician Review: Patient Assessed, Agree with Above Assessment and Plan Critical Care: No Time Spent Managing Pts Care (In Minutes): 50
[2022-09-25 22:02] LABS: Urine Bacteria None Seen /HPF (<20); Urine Mucus Slight /HPF (None Seen); Urine RBC <5 /HPF (None Seen)
[2022-09-25] MEDS ORDERED: ONDANSETRON 4 MG/2 ML VIAL IV PRN (23:36)
[2022-09-25] MEDS ORDERED: ACETAMINOPHEN 500 MG TAB PO PRN (23:36)
[2022-09-26 00:40] VITALS: BMI 29.4
[2022-09-26] MEDS: NA CHLORIDE 0.9% 1,000 ML IV SCH ×2 (00:40→13:56)
[2022-09-26 04:58] LABS: Absolute Lymphocytes (CBC) 2.1 K/uL (0.7-4.9); Hematocrit 33.1 % (39.6-49.0); MCV 91.4 fL (80-100); MPV 8.3 fL (7.6-11.3); RBC Red Blood Cell Count 3.62 M/uL (4.33-5.43)
[2022-09-26 05:34] LABS: BUN Blood Urea Nitrogen 26 mg/dL (7-18); Bicarbonate 27 mmol/L (21-32); Glomerular Filtration Rate 70 ml/min (=/>90); Glucose Level 118 mg/dL (74-106); HDL Cholesterol 41 mg/dL (40-60); LDL Cholesterol, Calculated 46 mg/dL (<130); Magnesium 2.1 mg/dL (1.6-2.4); Phosphorus 3.7 mg/dL (2.5-4.9); Potassium 3.6 mmol/L (3.5-5.1); Sodium Level 145 mmol/L (136-145)
[2022-09-26 05:36] LABS: Thyroid Stimulating Hormone < 0.005 uIU/mL (0.358-3.740)
[2022-09-26] MEDS ORDERED: POTASSIUM CL SA 10 MEQ TAB PO ONE (09:00)
[2022-09-26 14:38] LABS: Thyroid Stimulating Hormone < 0.005 uIU/mL (0.358-3.740)
--- NOTE | 2022-09-26 20:16 | RAD REPORT ---
EXAM DESCRIPTION: US - CP - 09/26/2022 8:02 pm CLINICAL HISTORY: syncope Headache, drowsiness COMPARISON: Head C Spine Mpr Wo Con dated 05/22/2022 TECHNIQUE: Real-time sonographic evaluation of both carotid systems was performed. Doppler interroga tion was performed with waveform tracing bilaterally. FINDINGS: Normal high resistance waveforms are noted in both external carotid arteries. The common c arotid arteries and internal carotid arteries show normal low resistance waveforms. Mild hard plaque is seen involving both carotid bulbs. Peak systolic and end diastolic velocity value s and the ICA/CCA ratios are in the non-hemodynamically significant range. Antegrade flow seen in both vertebral arteries. IMPRESSION: Mild hard plaque is seen involving both carotid bulbs. No evidence of a hemodynamically significant stenosis.
[2022-09-26 20:46] VITALS: O2SAT 94
[2022-09-26] MEDS ORDERED: DONEPEZIL HCL 5 MG TAB PO SCH (21:00)
[2022-09-26] MEDS ORDERED: TAMSULOSIN 0.4 MG SR CAP PO SCH (21:00)
[2022-09-26] MEDS ORDERED: ATORVASTATIN 40 MG TAB PO SCH (21:00)
[2022-09-27] MEDS: NA CHLORIDE 0.9% 1,000 ML IV SCH (01:55)
[2022-09-27 03:57] LABS: Potassium 3.6 mmol/L (3.5-5.1)
[2022-09-27] MEDS ORDERED: POTASSIUM CL SA 10 MEQ TAB PO ONE (04:18)
--- NOTE | 2022-09-27 05:49 | P.PN ---
Subjective Date of Service: 09/26/22 Patient doing well with no new complaints. Clinical symptoms are much better. Spoke with daughter and patient does have a do not attempt resuscitation. That really want anything too aggressive. Will workup his syncope and if his carotid Doppler, echocardiogram and MRI were negative tomorrow that he should be able to go home. Review of Systems 10-point ROS is otherwise unremarkable Physical Examination - Vital Signs Temperature: 98.1 F Blood Pressure: 155/68 Pulse: 55 Respirations: 18 Pulse Ox (%): 96 - Physical Exam General: Alert, In no apparent distress, Demented HEENT: Atraumatic, PERRLA, EOMI Neck: Supple, JVD not distended Respiratory: Clear to auscultation bilaterally, Normal air movement Cardiovascular: Regular rate/rhythm, Normal S1 S2, Systolic murmur Gastrointestinal: Normal bowel sounds, No tenderness Musculoskeletal: No tenderness Integumentary: No rashes Neurological: Normal speech, Normal tone, Normal affect Lymphatics: No axilla or inguinal lymphadenopathy - Studies Medications List Reviewed: Yes Assessment & Plan - Problems (Diagnosis) (1) Dementia Current Visit: Yes Status: Chronic Qualifiers: Dementia type: Alzheimer's Alzheimer's disease onset: unspecified onset Dementia severity: unspecified severity Dementia behavioral or psychological symptom: with agitation Qualified Code(s): G30.9 - Alzheimer's disease, unspecified; F02.811 - Dementia in other diseases classified elsewhere, unspecified severity, with agitation (2) Hypertension Current Visit: Yes Status: Chronic Qualifiers: Hypertension type: primary hypertension Qualified Code(s): I10 - Essential (primary) hypertension (3) Syncope and collapse Current Visit: Yes Status: Acute - Plan Plan: 1. Echocardiogram 2. Carotid Doppler 3. Monitor on telemetry 4. MRI of the brain 5. Spoke with daughter who has worked at our hospital and she does not want any aggressive care at this time. If his workup is negative then plan is to discharge home in the morning. His thyroid studies (freeT4) were a little elevated. Have given him methimazole. Will continue to monitor as an outpatient. Discharge Plan: Home Plan to discharge in: 24 Hours - Advance Directives Does patient have a Living Will: No Does patient have a Durable POA for Healthcare: Yes - Code Status/Comfort Care Code Status: Do Not Attempt Resuscitat Physician Review: Patient Assessed, Agree with Above Assessment and Plan Critical Care: No Time Spent Managing PTS Care (In Minutes): 35
--- NOTE | 2022-09-27 08:57 | RAD REPORT ---
EXAM DESCRIPTION: MRI - Brain Wo Cont - 09/27/2022 7:41 am CLINICAL HISTORY: Syncope COMPARISON: Head CT September 25, 2022 TECHNIQUE: Axial, sagittal, and coronal magnetic resonance images of the brain were obtained. FINDINGS: Mild to moderate signal within periventricular, deep and subcortical white matter probably ischemic changes secondary to small vessel disease Diffusion-weighted/ADC mapping does not reveal evidence of acute infarction. The ventricles are normal caliber. An extra-axial fluid collection is not noted. Fluid within the sinuses/mastoids is not seen IMPRESSION: No acute intracranial abnormality noted
[2022-09-27] MEDS ORDERED: LOSARTAN POTASSIUM 50 MG TABLET PO SCH (09:26)
--- NOTE | 2022-09-27 09:33 | P.DS ---
Discharge Date: 09/27/22 Disposition: ROUTINE DISCHARGE Discharge Condition: GOOD Reason for Admission: Weakness, Near Syncope - Problems (1) Dementia Current Visit: Yes Status: Chronic Qualifiers: Dementia type: Alzheimer's Alzheimer's disease onset: unspecified onset Dementia severity: unspecified severity Dementia behavioral or psychological symptom: with agitation Qualified Code(s): G30.9 - Alzheimer's disease, unspecified; F02.811 - Dementia in other diseases classified elsewhere, unspecified severity, with agitation (2) Hypertension Current Visit: Yes Status: Chronic Qualifiers: Hypertension type: primary hypertension Qualified Code(s): I10 - Essential (primary) hypertension (3) Syncope and collapse Current Visit: Yes Status: Acute Brief History of Present Illness: Patient is an 82-year-old male with history of hypertension, BPH, anemia and Alzheimer/dementia who presented to the emergency department from assisted living facility via EMS with decreased responsiveness. [facility] called EMS because patient was unresponsive, not even to sternal rub. When EMS transferred him, he was awake and responding appropriately. Patient does not recall the events of the day. He denies feeling badly in any way. His workup is unr emarkable today- head CT negative, urine negative, no WBC. BUN is slightly elevated. ED provider wishes to admit patient for observation. Vital Signs/Physical Exam: Temp Pulse Resp BP Pulse Ox 98.1 F 52 16 157/67 H 96 09/27/22 08:00 09/27/22 08:00 09/27/22 08:00 09/27/22 08:00 09/27/22 08:00 Laboratory Data at Discharge: WBC 9.80 K/uL (4.3-10.9) 09/26/22 04:30 Hgb 11.0 g/dL (13.6-17.9) L 09/26/22 04:30 Hct 33.1 % (39.6-49.0) L 09/26/22 04:30 Plt Count 243 K/uL (152-406) 09/26/22 04:30 PT 11.7 SECONDS (9.5-12.5) 09/25/22 19:16 INR 1.06 09/25/22 19:16 Sodium 142 mmol/L (136-145) 09/27/22 03:06 Potassium 3.6 mmol/L (3.5-5.1) 09/27/22 03:06 BUN 24 mg/dL (7-18) H 09/27/22 03:06 Creatinine 0.97 mg/dL (0.70-1.30) 09/27/22 03:06 Glucose 95 mg/dL (74-106) 09/27/22 03:06 Phosphorus 3.7 mg/dL (2.5-4.9) 09/26/22 04:30 Magnesium 2.1 mg/dL (1.6-2.4) 09/26/22 04:30 Total Bilirubin 0.7 mg/dL (0.2-1.0) 09/25/22 19:16 AST 28 U/L (15-37) 09/25/22 19:16 ALT 40 U/L (16-61) 09/25/22 19:16 Alkaline Phosphatase 113 U/L (45-117) 09/25/22 19:16 Triglycerides 66 mg/dL (<150) 09/26/22 04:30 Cholesterol 100 mg/dL (<200) 09/26/22 04:30 HDL Cholesterol 41 mg/dL (40-60) 09/26/22 04:30 Cholesterol/HDL Ratio 2.44 09/26/22 04:30 Lipase Cancelled 09/25/22 19:23 Home Medications: Atorvastatin Calcium [Lipitor] 40 mg PO BEDTIME #30 tab 04/07/22 Donepezil HCl 1 tab PO BEDTIME 05/23/22 Tamsulosin HCl 1 tab PO BEDTIME 05/23/22 Losartan Potassium 25 mg PO BID #60 tab 09/27/22 Metoprolol Tartrate 12.5 mg PO BID #30 tab 09/27/22 New Medications: Losartan Potassium 25 mg PO BID #60 tab Metoprolol Tartrate 12.5 mg PO BID #30 tab Physician Discharge Instructions: OK TO DC IV AND DC HOME FOLLOW-UP WITH PRIMARY CARE PROVIDER IN 1-2 WEEKS FOLLOW-UP WITH CARDIOLOGY IN 1-2 WEEKS FOLLOW-UP WITH ENDOCRINOLOGY IN 1-2 WEEKS-repeat thyroid studies RETURN TO THE ER IF symptoms worsens CALL DR. MAURER AT [phone] IF ANY QUESTIONS REGARDING HOSPITAL STAY. PLEASE CALL THE FLOOR AT [phone] IF ANY MEDICATION OR NURSING QUESTIONS. Diet: AHA Activity: Fall precautions
[2022-09-27 12:28] VITALS: BP 150/67
--- NOTE | 2022-09-27 13:06 | EKG ---
Test Date: 2022-09-25 Test Time: 19:26:13 Psychiatric Secretary: BLANCA MEASUREMENT RESULTS: Intervals: Rate: 66 [place]: 184 QRSD: 98 QT: 438 QTc: 459 [place]: P: [place]: 184 QRS: 84 T: 60 INTERPRETIVE STATEMENTS: Normal sinus rhythm Incomplete right bundle branch block Borderline ECG Compared to ECG 05/22/2022 23:37:08 Accelerated junctional rhythm no longer present ST (T wave) deviation no longer present Electronically Signed On 09-27-22 13:03:17 CDT by Rafael Contreras
--- NOTE | 2022-09-27 13:27 | ECHO ---
HEIGHT: 5 ft 10 in WEIGHT: 205 lb 0 oz DATE OF STUDY: 09/27/[address]: Ozzie Waters MD 2-DIMENSIONAL: YES M.MODE: YES DOPPLER: YES COLOR FLOW: YES TDS: PORTABLE: DEFINITY: BUBBLE STUDY: DIAGNOSIS: SYNCOPE CARDIAC HISTORY: CATHERIZATION: SURGERY: PROSTHETIC VALVE: PACEMAKER: MEASUREMENTS (cm) DIASTOLIC (NORMALS) SYSTOLIC (NORMALS) IVSd 0.9 (0.6-1.2) LA Diam 3.9 (1.9-4.0) LVEF 67% LVIDd 5.0 (3.5-5.7) LVIDs 3.2 (2.0-3.5) %FS 37% LVPWd 1.0 (0.6-1.2) Ao Diam 3.3 (2.0-3.7) 2 DIMENSIONAL ASSESSMENT: RIGHT ATRIUM: NORMAL LEFT ATRIUM: NORMAL RIGHT VENTRICLE: NORMAL LEFT VENTRICLE: NORMAL TRICUSPID VALVE: TRACE TRICUSPID REGURGITATION MITRAL VALVE: TRACE MITRAL REGURGITATION PULMONIC VALVE: NORMAL AORTIC VALVE: NORMAL PERICARDIAL EFFUSION: TRACE AORTIC ROOT: NORMAL LEFT VENTRICULAR WALL MOTION: NORMAL DOPPLER/COLOR FLOW: SEE BELOW COMMENTS: 1. NORMAL LEFT VENTRICULAR EJECTION FRACTION 60-65% 2. NORMAL WALL MOTION 3. TRACE TRICUSPID REGURGITATION, MITRAL REGURGITATION 4. TRACE PERICARDIAL EFFUSION TECHNOLOGIST: ANJEL BOTELLO
[2022-09-27 16:05] VITALS: TEMP 98.4
== END 2022-09-27 16:12 | disposition home or self-care (01) ==
LOC: ER 18:57 → ERHOLD 21:38 → 4TH 23:31
PROVIDERS: ADMIT Hospitalist; ATTEND Hospitalist
DX: R55 Syncope and collapse (principal); G30.9 Alzheimer's disease, unspecified; F02.811 Dementia in other diseases classified elsewhere, unspecified severity, with agitation; E86.0 Dehydration; R53.1 Weakness; I10 Essential (primary) hypertension; N40.0 Benign prostatic hyperplasia without lower urinary tract symptoms; D64.9 Anemia, unspecified; Z20.822 Contact with and (suspected) exposure to COVID-19
CPT/HCPCS: 36415; 70450; 70551; 71045; 80048; 80061; 80076; 81003; 81015; 82140; 83036; 83690; 83735; 83880; 84100; 84439; 84443; 84484; 85025; 85610; 93005; 93306; 93880; 97116; 97161; 99285; J7030; J7040; U0003

== ENCOUNTER 2023-01-02 17:33 | Emergency (ER) | payer OTHER ==
--- OUTSIDE RECORDS SUMMARY | 2023-01-02 17:36 | XMS REPORT | Continuity of Care Document ---
:1940 Author Organization [facility] t Address [address]. [address] [place] [address] Care Team Providers Name Role Phone Asked, No Pcp Primary Care Physician Unavailable Caitlyn Butler MD Attending Clinician Payers Payer Name Policy Type Policy Number Effective Date Expiration Date S ource Problems This patient has no known problems. Allergies, Adverse Reactions, Alerts This patient has no known allergies or adverse reactions. Social History Social Habit Start Date Stop Date Quantity Comments Source Gender identity [facility] Sexual orientation [facility] Sex Assigned At [birth year] [facility] 00:00:00 00:00:00 Smoking Status Start Date Stop Date Source Tobacco smoking consumption unknown [facility] Medications This patient has no known medications. Procedures Procedure Date / Time Performed Performing Clinician [facility] MRI BRAIN WO CONTRAST 2022-02-12 22:09:33 Caitlyn Butler [facility] Plan of Care Planned Activity Planned Date Details Comments Source Future Scheduled 2022-10-19 65+ PNEUMOCOCCAL [facility] Test 09:48:00 VACCINE (1 - PCV) [code = 65+ PNEUMOCOCCAL VACCINE (1 - PCV)] Future Scheduled 2022-10-19 INFLUENZA VACCINE [facility] Test 09:48:00 [code = INFLUENZA VACCINE] Future Scheduled 2022-10-19 COVID-19 VACCINE (#1) [facility] Test 09:48:00 [code = COVID-19 VACCINE (#1)] Future Scheduled 2022-10-19 SHINGLES VACCINES (1 Met [facility] Test 09:48:00 of 2) [code = SHINGLES VACCINES (1 of 2)] Future Scheduled 2022-10-19 65+ PNEUMOCOCCAL [facility] Test 09:48:00 VACCINE (1 - PCV) [code = 65+ PNEUMOCOCCAL VACCINE (1 - PCV)] Future Scheduled 2022-10-19 INFLUENZA VACCINE [facility] Test 09:48:00 [code = INFLUENZA VACCINE] Future Scheduled 2022-10-19 COVID-19 VACCINE (#1) [facility] Test 09:48:00 [code = COVID-19 VACCINE (#1)] Future Scheduled 2022-10-19 SHINGLES VACCINES (1 Met [facility] Test 09:48:00 of 2) [code = SHINGLES VACCINES (1 of 2)] Future Scheduled 2022-06-29 COVID-19 VACCINE (#1) [facility] Test 12:32:04 [code = COVID-19 VACCINE (#1)] Future Scheduled 2022-06-29 SHINGLES VACCINES (1 Met [facility] Test 12:32:04 of 2) [code = SHINGLES VACCINES (1 of 2)] Future Scheduled 2022-06-29 65[facility] 12:32:04 VACCINE (1 - PCV) [code = 65+ PNEUMOCOCCAL VACCINE (1 - PCV)] Future Scheduled 2022-06-29 INFLUENZA VACCINE [facility] Test 12:32:04 [code = INFLUENZA VACCINE] Future Scheduled 2022-05-18 HEPATITIS B VACCINES Met [facility] Test 13:21:16 (1 of 3 - 3-dose series) [code = HEPATITIS B VACCINES (1 of 3 - 3-dose series)] Future Scheduled 2022-05-18 COVID-19 VACCINE (#1) [facility] Test 13:21:16 [code = COVID-19 VACCINE (#1)] Future Scheduled 2022-05-18 SHINGLES VACCINES (1 Met [facility] Test 13:21:16 of 2) [code = SHINGLES VACCINES (1 of 2)] Future Scheduled 2022-05-18 65[facility] Test 13:21:16 VACCINE (1 - PCV) [code = 65+ PNEUMOCOCCAL VACCINE (1 - PCV)] Future Scheduled 2022-05-18 INFLUENZA VACCINE [facility] Test 13:21:16 [code = INFLUENZA VACCINE] Encounters Start End Encounter Admission Attending Care Care Encounter Source Date/Time Date/Time Type Type Clinicians Facility Department ID 2022-02-12 2022-02-12 [facility], 1.2.840.1 [id number] Methodi 15:45:38 23:59:00 Encounter Irfan 37466.1.[address] 3.430.2.7 Hospit a .3.050474 l .8 2022-02-12 2022-02-12 [facility], 1.2.840.1 [id number] Methodi 15:45:38 23:59:00 Encounter Irfan 62167.1.[address] 3.430.2.7 Hospit a .3.737154 l .8 2022-02-12 2022-02-12 Travel 1.2.840.1 1.2.008.531 [id number] Methodi 00:00:00 00:00:[address] 3.430.2.7 0.2.7.3.698 Ho spita .3.082722 084.8 l .8 2022-02-12 2022-02-12 Travel 1.2.840.1 1.2.840.434 [id number] Methodi 00:00:00 00:00:[address] 3.430.2.7 0.2.7.3.698 Ho spita .3.559935 084.8 l .8 2022-02-01 2022-02-01 Transcribe Luke, 1.2.840.1 [id number] Methodi 00:00:00 00:00:00 Orders Irfan [address]374.1.[address] 3.430.2.7 Hospit a .3.667984 l .8 2022-02-01 2022-02-01 Transcribe Luke, 1.2.840.1 [id number] Methodi 00:00:00 00:00:00 Orders Irfan [address]55.1.[address] 3.430.2.7 Hospit a .3.411364 l .8 Results This patient has no known results.
--- NOTE | 2023-01-02 18:20 | RAD REPORT ---
EXAM DESCRIPTION: CT - Head Brain Wo Cont - 01/02/2023 6:05 pm CLINICAL HISTORY: TRAUMA COMPARISON: Head Brain Wo Cont dated 09/25/2022 TECHNIQUE: Noncontrast head CT images ad were obtained without IV contrast. Multiplanar reformats we re generated and reviewed. All CT scans are performed using dose optimization technique as appropriate and may include automated exposure control or mA/KV adjustment according to patient size. FINDINGS: No intracranial hemorrhage, mass, or edema. Midline structures are unremarkable. Stable ventricular caliber, with mild diffuse parenchymal volume loss. Patchy periventricular and lux p white matter hypodensities, nonspecific, and stable, most suggestive of chronic small vessel ischem ic changes. Nina-white matter differentiation is preserved, without evidence of acute infarct. No abnormal extra- axial fluid collections. Mastoid air cells and visualized portions of the paranasal sinuses are clear. No acute bony findings. IMPRESSION: No evidence of an acute intracranial process. Stable chronic findings as above.
--- NOTE | 2023-01-02 18:31 | ER ---
Nurse's Notes [facility] Name: Shaheen Riddle Age: 82 yrs Sex: Male : 1940 Arrival Date: 01/02/2023 Time: 17:33 Bed 14 Private MD: Diagnosis: Possible head injury, fall Presentation: 01/02 17:36 Chief complaint: EMS states: [facility] staff member reports that patient was found ss on the ground in his room. Pt denies falling and has no complaints, redness noted to back of head. A\T\O x 2. HX of dementia. Coronavirus screen: Client denies travel out of the [place] in the last 14 days. Ebola Screen: Patient denies exposure to infectious person. Patient denies travel to an Ebola-affected area in the 21 days before illness onset. Initial Sepsis Screen: Does the patient meet any 2 criteria? No. Patient's initial sepsis screen is negative. Does the patient have a suspected source of infection? No. Patient's initial sepsis screen is negative. Risk Assessment: Do you want to hurt yourself or someone else? Patient reports no desire to harm self or others. Onset of symptoms was January 02, 2023. 17:36 Method Of Arrival: Ambulatory ss 17:36 Acuity: SALVADOR 3 ss Historical: - Allergies: 17:44 No Known Allergies; ss - Home Meds: 17:43 atorvastatin 40 mg Oral tablet daily [Active]; donepezil 5 mg Oral tablet every day at sg5 bedtime [Active]; donepezil 10 mg Oral tablet daily [Active]; hydrochlorothiazide 25 mg Oral tablet daily [Active]; losartan 100 mg Oral tablet daily [Active]; melatonin 10 mg Oral Tablet,disintegrating every day at bedtime [Active]; quetiapine 50 mg Oral tablet 3 times per day [Active]; tamsulosin 0.4 mg Oral capsule daily [Active]; - PMHx: 17:43 Alzheimer's disease; benign prostatic hyperplasia; COVID; Dementia; sg5 Hypercholesterolemia; Hypertensive disorder; Hypothyroidism; 17:44 Alzheimer's disease; benign prostatic hyperplasia; COVID; Dementia; ss Hypercholesterolemia; Hypertensive disorder; Hypothyroidism; - Immunization history:: Adult Immunizations up to date. - Social history:: Smoking status: Patient denies any tobacco usage or history of. Screenin:43 [facility] ED Fall Risk Assessment (Adult) History of falling in the last 3 months, sg5 including since admission Yes- physiologic fall (2 pts). Abuse screen: Denies threats or abuse. Nutritional screening: No deficits noted. Tuberculosis screening: No symptoms or risk factors identified. Assessment: 17:41 General: Appears in no apparent distress. comfortable, Behavior is calm, cooperative, sg5 appropriate for age. Pain: Denies pain. Neuro: Level of Consciousness is awake, alert, obeys commands, Oriented to person, place, time, situation, Appropriate for age. Cardiovascular: Capillary refill < 3 seconds Patient's skin is warm and dry. Respiratory: Airway is patent Respiratory effort is even, unlabored, Respiratory pattern is regular, symmetrical. GI: No signs and/or symptoms were reported involving the gastrointestinal system. : No signs and/or symptoms were reported regarding the genitourinary system. EENT: No signs and/or symptoms were reported regarding the EENT system. Derm: No signs and/or symptoms reported regarding the dermatologic system. Musculoskeletal: No signs and/or symptoms reported regarding the musculoskeletal system. 17:41 Respiratory: Respiratory effort is wet cough. EENT:. sg5 19:07 Reassessment: Assumed care of pt, waiting on transportation back to [facility]. vc1 Vital Signs: 17:36 BP 140 / 78; Pulse 99; Resp 18; Temp 99.9(O); Pulse Ox 98% on R/A; ss 17:53 Weight 77.11 kg; Height 5 ft. 10 in. ; sg5 18:22 BP 135 / 62; Pulse 86; Resp 16; Pulse Ox 94% on R/A; sg5 17:53 Body Mass Index 24.39 (77.11 kg, 177.8 cm) sg5 ED Course: 17:35 Patient arrived in ED. kj1 17:35 Luis Powell MD is Attending Physician. sp3 17:38 Radha Matthews, KILEY is Primary Nurse. sg5 17:43 Patient has correct armband on for positive identification. Bed in low position. Call sg5 light in reach. Side rails up X2. Valuables Left with patient. 17:44 Triage completed. ss 17:44 Arm band placed on right wrist. ss 18:07 CT Head Brain wo Cont In Process Unspecified. EDMS 19:20 No provider procedures requiring assistance completed. Patient did not have IV access vc1 during this emergency room visit. Administered Medications: No medications were administered Medication: 19:21 VIS not applicable for this client. vc1 Outcome: 18:30 Discharge ordered by . sp3 19:20 Discharged to home via wheelchair, with family. vc1 19:20 Condition: good 19:20 Discharge instructions given to patient, family, Instructed on discharge instructions, follow up and referral plans. Demonstrated understanding of instructions, follow-up care. 19:21 Patient left the ED. vc1 Signatures: Dispatcher [employer] EDMS Yusra Peace, RN RN Isabel Wolf kj1 Luis Powell MD MD sp3 Joann Gold RN RN vc1 Radha Matthews RN RN sg5
--- NOTE | 2023-01-02 18:31 | EDPHYS ---
Physician Documentation [facility] Name: Shaheen Riddle Age: 82 yrs Sex: Male : 1940 Arrival Date: 01/02/2023 Time: 17:33 Bed 14 Private MD: ED Physician Luis Powell HPI: 01/02 17:58 This 82 yrs old Male presents to ER via Ambulatory with complaints of Fall Injury. sp3 17:58 82-year-old male with history of [place]'s disease, prostatic hyperplasia, dementia sp3 [facility] for potential head injury from a ground-level fall versus patient laying down himself. Patient was found on the ground on the carpeted floor landing flat. Patient states he was tired and decided to lay down. He denies any prodrome or fall or any current pain or symptoms whatsoever. [facility] staff out of an abundance of caution have referred him here for evaluation. ROS, history and physical severely limited secondary to longstanding dementia.. Historical: - Allergies: 17:44 No Known Allergies; ss - Home Meds: 17:43 atorvastatin 40 mg Oral tablet daily [Active]; donepezil 5 mg Oral tablet every day at sg5 bedtime [Active]; donepezil 10 mg Oral tablet daily [Active]; hydrochlorothiazide 25 mg Oral tablet daily [Active]; losartan 100 mg Oral tablet daily [Active]; melatonin 10 mg Oral Tablet,disintegrating every day at bedtime [Active]; quetiapine 50 mg Oral tablet 3 times per day [Active]; tamsulosin 0.4 mg Oral capsule daily [Active]; - PMHx: 17:43 Alzheimer's disease; benign prostatic hyperplasia; COVID; Dementia; sg5 Hypercholesterolemia; Hypertensive disorder; Hypothyroidism; 17:44 Alzheimer's disease; benign prostatic hyperplasia; COVID; Dementia; ss Hypercholesterolemia; Hypertensive disorder; Hypothyroidism; - Immunization history:: Adult Immunizations up to date. - Social history:: Smoking status: Patient denies any tobacco usage or history of. ROS: 17:59 Unable to obtain ROS due to baseline dementia. sp3 Exam: 17:59 Constitutional: This is a well developed, well nourished patient who is awake, alert, sp3 and in no acute distress. Head/Face: Normocephalic, atraumatic. Eyes: Pupils equal round and reactive to light, extra-ocular motions intact. Lids and lashes normal. Conjunctiva and sclera are non-icteric and not injected. Cornea within normal limits. Periorbital areas with no swelling, redness, or edema. ENT: Nares patent. No nasal discharge, no septal abnormalities noted. External auditory canals are clear. Oropharynx with no redness, swelling, or masses, exudates, or evidence of obstruction, uvula midline. Mucous membranes moist. Neck: Trachea midline, no thyromegaly or masses palpated, and no cervical lymphadenopathy. Supple, full range of motion without nuchal rigidity, or vertebral point tenderness. No Meningismus. Chest/axilla: Normal chest wall appearance and motion. Nontender with no deformity. No lesions are appreciated. Cardiovascular: Regular rate and rhythm with a normal S1 and S2. No gallops, murmurs, or rubs. Normal PMI, no JVD. No pulse deficits. Respiratory: Lungs have equal breath sounds bilaterally, clear to auscultation and percussion. No rales, rhonchi or wheezes noted. No increased work of breathing, no retractions or nasal flaring. Abdomen/GI: Soft, non-tender, with normal bowel sounds. No distension or tympany. No guarding or rebound. No evidence of tenderness throughout. Back: No spinal tenderness. No costovertebral tenderness. Full range of motion. Skin: Warm, dry with normal turgor. Normal color with no rashes, no lesions, and no evidence of cellulitis. MS/ Extremity: Pulses equal, no cyanosis. Neurovascular intact. Full, normal range of motion. 17:59 Neuro: Normal neuro exam except patient is disoriented to place and time.. Vital Signs: 17:36 BP 140 / 78; Pulse 99; Resp 18; Temp 99.9(O); Pulse Ox 98% on R/A; ss 17:53 Weight 77.11 kg; Height 5 ft. 10 in. ; sg5 18:22 BP 135 / 62; Pulse 86; Resp 16; Pulse Ox 94% on R/A; sg5 17:53 Body Mass Index 24.39 (77.11 kg, 177.8 cm) sg5 MDM: 17:36 Patient medically screened. sp3 18:00 Data reviewed: radiologic studies. ED course: 82-year-old male with possible head sp3 injury versus just being found laying on the ground. Patient is moving neck without any difficulties and has absolutely no complaints of the head neck or any other aspect. Exam from a trauma standpoint is completely normal. Will obtain CT scan of the head and if negative we will safely discharge patient home back to the care region.. 18:29 ED course: CT scan of the head is negative. We will safely discharge patient home at 3 this time.. 01/02 17:36 Order name: CT Head Brain wo Cont; Complete Time: 18:29 sp3 Administered Medications: No medications were administered Disposition Summary: 01/02/23 18:30 Discharge Ordered Location: Home sp3 Condition: Stable sp3 Diagnosis - Possible head injury, fall sp3 Followup: sp3 - With: Private Physician - When: Upon discharge from the Emergency Department - Reason: Continuance of care Discharge Instructions: - Discharge Summary Sheet sp3 - Fall Prevention in Hospitals, Adult sp3 Forms: - Medication Reconciliation Form sp3 - Thank You Letter sp3 - Antibiotic Education sp3 - Prescription Opioid Use sp3 Signatures: Dispatcher [employer] EDMS Yusra Peace, RN RN ss Luis Powell MD MD sp3 Radha Matthews RN RN sg5
[2023-01-02 19:28] VITALS: TEMP 99.9
[2023-01-02 19:29] VITALS: BP 135/62; O2SAT 94
== END 2023-01-02 19:21 | disposition home or self-care (01) ==
LOC: ER 17:33
DX: Z04.3 Encounter for examination and observation following other accident (principal); W18.30XA Fall on same level, unspecified, initial encounter; G30.9 Alzheimer's disease, unspecified; F02.80 Dementia in other diseases classified elsewhere, unspecified severity, without behavioral disturbance, psychotic disturbance, mood disturbance, and anxiety
CPT/HCPCS: 70450; 99283

== ENCOUNTER → 2023-08-11 | Emergency (ER) | payer OTHER ==
[~2023-08-11] MED LIST: AMLODIPINE 5 MG TAB ONE; NA CHLORIDE 0.9% 500 ML ONE
[2023-08-11 07:58] LABS: Hematocrit 35.6 % (39.6-49.0); Lymphocytes % 22.6 % (15.3-44.8); MCV 91.6 fL (80-100); MPV 7.6 fL (7.6-11.3); Platelets 349 thou/uL (152-406); RBC Red Blood Cell Count 3.89 M/uL (4.33-5.43)
[2023-08-11 08:00] LABS: Protime INR 1.12
--- NOTE | 2023-08-11 08:04 | RAD REPORT ---
EXAM DESCRIPTION: [facility] Single View08/11/2023 7:50 am CLINICAL HISTORY: COUGH COMPARISON: Chest Single View dated 09/25/2022; Chest Single View dated 05/23/2022; Chest Single View dated 04/07/2022; Chest Single View dated 04/04/2022 TECHNIQUE: Portable AP view of the chest. FINDINGS: The lungs are clear. No pneumothorax or effusion. The cardiomediastinal contours are unre markable. IMPRESSION: No acute cardiopulmonary process.
[2023-08-11 08:13] LABS: Albumin 2.6 g/dL (3.4-5.0); Bilirubin Direct 0.2 mg/dL (0-0.2); Bilirubin Indirect, Calculated 0.3 mg/dL (0.2-0.8); Bilirubin Total 0.5 mg/dL (0.2-1.0); Potassium 3.6 mEq/L (3.5-5.1); Protein, Total 6.5 g/dL (6.4-8.2); Troponin High Sensitivity 17.9 pg/mL (<58.9)
[2023-08-11 08:14] LABS: Magnesium 1.9 mg/dL (1.6-2.4)
[2023-08-11 08:29] LABS: SARS-CoV-2 Antigen Rapid Res Negative (Negative)
--- NOTE | 2023-08-11 08:29 | RAD REPORT ---
EXAM DESCRIPTION: CT - Head Brain Wo Cont - 08/11/2023 7:47 am CLINICAL HISTORY: MENTAL STATUS CHANGE COMPARISON: Head Brain Wo Cont dated 01/02/2023; Head Brain Wo Cont dated 09/25/2022 TECHNIQUE: Noncontrast head CT images were obtained without IV contrast. Multiplanar reformats were generated and reviewed. All CT scans are performed using dose optimization technique as appropriate and may include automated exposure control or mA/KV adjustment according to patient size. FINDINGS: No intracranial hemorrhage, mass, or edema. Midline structures are unremarkable. Stable ventricular caliber, with moderate diffuse parenchymal volume loss. Patchy periventricular and deep white matter hypodensities, nonspecific, but suggestive of chronic sm all vessel ischemic changes. Nina-white matter differentiation is preserved, without evidence of acute infarct. No abnormal extra- axial fluid collections. Mastoid air cells and visualized portions of the paranasal sinuses are clear. No acute bony findings. IMPRESSION: No evidence of an acute intracranial process.
[2023-08-11 09:59] LABS: Specific Gravity 1.013 (1.005-1.030); Urine Bacteria None Seen /HPF (<20); Urine Bilirubin NEGATIVE (Negative); Urine Blood Negative (Negative); Urine Clarity Clear (Clear); Urine Color Light-Yellow (Yellow); Urine Glucose NEGATIVE (Negative); Urine Protein NEGATIVE (Negative); Urine RBC <5 /HPF (None Seen); Urine Urobilinogen Normal (Normal)
--- NOTE | 2023-08-11 10:28 | ER ---
Nurse's Notes [facility] Name: Shaheen Riddle Age: 83 yrs Sex: Male : 1940 Arrival Date: 08/11/2023 Time: 07:21 Bed 7 Private MD: Diagnosis: Essential (primary) hypertension;Dementia in other diseases classified elsewhere without behavioral disturbance;Alzheimer's disease, unspecified;Bradycardia, unspecified;Edema, unspecified Presentation: 08/11 07:35 Chief complaint: EMS states: Pt is resident at [facility], staff reported High Blood aa5 Pressure and "not acting himself, he is very happy this morning and normally he is grumpy". FSBG by EMS 83, 20G to R AC. EMS reports BP 227/78. Coronavirus screen: At this time, the client does not indicate any symptoms associated with coronavirus-19. Ebola Screen: Patient denies travel to an Ebola-affected area in the 21 days before illness onset. Initial Sepsis Screen: Does the patient meet any 2 criteria? No. Patient's initial sepsis screen is negative. Does the patient have a suspected source of infection? No. Patient's initial sepsis screen is negative. Risk Assessment: Do you want to hurt yourself or someone else? Patient reports no desire to harm self or others. Onset of symptoms was August 11, 2023. 07:35 Acuity: SALVADOR 3 aa5 07:35 Method Of Arrival: EMS: [facility] aa5 07:48 Note Patients son-in-law states that the patient just got out of quarantine for covid, ko1 he is also a DNR. Historical: - Allergies: 07:33 No Known Allergies; aa5 - PMHx: 07:33 Alzheimer's disease; benign prostatic hyperplasia; Dementia; Hypercholesterolemia; aa5 Hypertensive disorder; Hypothyroidism; - Immunization history:: Adult Immunizations unknown. - Social history:: Smoking status: Patient denies any tobacco usage or history of. Screenin:39 [facility] ED Fall Risk Assessment (Adult) History of falling in the last 3 months, ko1 including since admission Yes- single mechanical fall (1 pt) Confusion or Disorientation Yes (5 pts) Intoxicated or Sedated No (0 pts) Impaired Gait Yes (1 pt) Mobility Assist Device Used Yes (1 pt) Altered Elimination No (0 pt) Score/Fall Risk Level 3 or more points = High Risk Oriented to surroundings, Maintained a safe environment, Educated pt \\T\\ family on fall prevention, incl call for assistance when getting out of bed, Assessed \\T\\ reinforced patient's understanding of fall precautions, Provided non-skid footwear, Hourly rounding (assess needs \\T\\ fall precautionary measures) done, Used ambulatory aids as needed (educated on \\T\\ assisted with), Used gait belt as appropriate Implemented a Fall Risk Plan of Care, Remained w/in arm's length of patient and in sight while toileting, Offered frequent toileting (1:1 observation), Remained with patient while ambulating, Utilized family, sitter, or virtual estimator and drafter supervisor as indicated. Abuse screen: Denies threats or abuse. Denies injuries from another. Nutritional screening: No deficits noted. Tuberculosis screening: No symptoms or risk factors identified. Assessment: 07:35 General: Appears comfortable, Behavior is calm, cooperative. Pain: Denies pain. Neuro: aa5 Level of Consciousness is awake, obeys commands, confused, Oriented to person, place, Supervisor Decorating are equal bilaterally Moves all extremities. Speech is normal, Facial symmetry appears normal. Cardiovascular: Heart tones S1 S2 present Rhythm is regular. Respiratory: Airway is patent Respiratory effort is even, unlabored, Respiratory pattern is regular, symmetrical. GI: Abdomen is round non-distended, Bowel sounds present X 4 quads. Abd is soft and non tender X 4 quads. : brief noted. EENT: No signs and/or symptoms were reported regarding the EENT system. Derm: Skin is pink, warm \\T\\ dry. Musculoskeletal: Range of motion: intact in all extremities. 08:30 Reassessment: Pt denies any complaints. . Neuro: Level of Consciousness is awake, obeys aa5 commands, confused, Oriented to person, place. Respiratory: Airway is patent Respiratory effort is even, unlabored, Respiratory pattern is regular, symmetrical. Derm: Skin is pink, warm \\T\\ dry. Vital Signs: 07:35 BP 159 / 105; Pulse 54; Resp 16 S; Temp 98(O); Pulse Ox 99% on R/A; aa5 08:39 BP 171 / 80; Pulse 47; Resp 15; Pulse Ox 100% ; ko1 09:27 BP 175 / 97; Pulse 51; Resp 15; Pulse Ox 100% ; ko1 10:34 BP 166 / 69; Pulse 53; Resp 16; Pulse Ox 98% ; ko1 ED Course: 07:31 Patient arrived in ED. ko1 07:31 Arm band placed on. aa5 07:31 Patient has correct armband on for positive identification. Placed in gown. Bed in low aa5 position. Call light in reach. Side rails up X2. Client placed on continuous cardiac and pulse oximetry monitoring. NIBP monitoring applied. 07:32 Nathan Henderson MD is Attending Physician. [facility] 07:33 Tayler Saravia, KILEY is Primary Nurse. aa5 07:36 Triage completed. aa5 07:45 Maintain EMS IV. Dressing intact. Good blood return noted. Site clean \\T\\ dry. Gauge \\T\\ ko 1 site: 20g right AC. Patient maintains SpO2 saturation greater than 95% on room air. 07:46 SARS RAPID Sent. ko1 07:46 Flu Sent. ko1 07:46 Lipase Sent. ko1 07:46 Basic Metabolic Panel Sent. ko1 07:46 CBC with Diff Sent. ko1 07:46 LFT's Sent. ko1 07:46 Magnesium Sent. ko1 07:46 NT PRO-BNP Sent. ko1 07:46 PT-INR Sent. ko1 07:46 Troponin HS Sent. ko1 07:48 CT Head Brain wo Cont In Process Unspecified. EDMS 07:52 XRAY Chest (1 view) In Process Unspecified. EDMS 09:44 Urinalysis w/ reflexes Sent. ko1 09:48 Urine collected: straight cath specimen, clear, Amount Returned: 300mL. ko1 10:34 Provided Education on: na. ko1 10:34 No provider procedures requiring assistance completed. IV discontinued, intact, ko1 bleeding controlled, No redness/swelling at site. Pressure dressing applied. Administered Medications: 07:53 Drug: NS 0.9% IV 500 ml IV at bolus once Route: IV; Rate: bolus; Site: right ko1 antecubital; 09:46 Drug: Norvasc PO 5 mg PO once Route: PO; ko1 Medication: 10:34 VIS not applicable for this client. ko1 Outcome: 10:27 Discharge ordered by . [facility] 10:34 Discharged to fdc. Report called to Director Dasha ko1 10:51 Condition: stable ko1 10:51 Discharge instructions given to family, fdc, Instructed on discharge instructions, follow up and referral plans. medication usage, Demonstrated understanding of instructions, follow-up care, medications, Prescriptions given X 1, 10:53 Patient left the ED. ko1 Signatures: Dispatcher [employer] EDNathan Valenzuela MD MD cha Calderon, Audri, RN RN aa5 Sasha Ingram RN RN ko1 Corrections: (The following items were deleted from the chart) 07:35 07:33 PMHx: COVID; ana aa5
--- NOTE | 2023-08-11 10:29 | EDPHYS ---
Physician Documentation [facility] Name: Shaheen Riddle Age: 83 yrs Sex: Male : 1940 Arrival Date: 08/11/2023 Time: 07:21 Bed 7 Private MD: ED Physician Nathan Henderson HPI: 08/11 09:28 This 83 yrs old Male presents to ER via EMS with complaints of High Blood harpal Pressure. 09:28 The patient has elevated blood pressure and discovered this at home. Onset: The harpal symptoms/episode began/occurred just prior to arrival. Modifying factors: The symptoms are aggravated by activity, The symptoms are alleviated by remaining still, prescription meds, DAKSHA-inhibitor. Associated signs and symptoms: The patient has no apparent associated signs or symptoms. Severity of symptoms: At its worst the blood pressure was moderate, in the emergency department the blood pressure is improved, moderately. The patient has not experienced similar symptoms in the past. Historical: - Allergies: 07:33 No Known Allergies; aa5 - PMHx: 07:33 Alzheimer's disease; benign prostatic hyperplasia; Dementia; Hypercholesterolemia; aa5 Hypertensive disorder; Hypothyroidism; - Immunization history:: Adult Immunizations unknown. - Social history:: Smoking status: Patient denies any tobacco usage or history of. ROS: 09:30 Constitutional: Negative for fever, chills, and weight loss, Eyes: Negative for injury, harpal pain, redness, and discharge, ENT: Negative for injury, pain, and discharge, Neck: Negative for injury, pain, and swelling, Cardiovascular: Negative for chest pain, palpitations, and edema, Respiratory: Negative for shortness of breath, cough, wheezing, and pleuritic chest pain, Abdomen/GI: Negative for abdominal pain, nausea, vomiting, diarrhea, and constipation, Back: Negative for injury and pain, : Negative for injury, bleeding, discharge, and swelling, MS/Extremity: Negative for injury and deformity, Skin: Negative for injury, rash, and discoloration, Neuro: Negative for headache, weakness, numbness, tingling, and seizure, Psych: Negative for depression, anxiety, suicide ideation, homicidal ideation, and hallucinations, Allergy/Immunology: Negative for hives, rash, and allergies, Endocrine: Negative for neck swelling, polydipsia, polyuria, polyphagia, and marked weight changes, Hematologic/Lymphatic: Negative for swollen nodes, abnormal bleeding, and unusual bruising, Exam: 09:30 Constitutional: This is a well developed, well nourished patient who is awake, alert, harpal and in no acute distress. Head/Face: Normocephalic, atraumatic. Eyes: Pupils equal round and reactive to light, extra-ocular motions intact. Lids and lashes normal. Conjunctiva and sclera are non-icteric and not injected. Cornea within normal limits. Periorbital areas with no swelling, redness, or edema. ENT: Nares patent. No nasal discharge, no septal abnormalities noted. Tympanic membranes are normal and external auditory canals are clear. Oropharynx with no redness, swelling, or masses, exudates, or evidence of obstruction, uvula midline. Mucous membranes moist. Neck: Trachea midline, no thyromegaly or masses palpated, and no cervical lymphadenopathy. Supple, full range of motion without nuchal rigidity, or vertebral point tenderness. No Meningismus. Chest/axilla: Normal chest wall appearance and motion. Nontender with no deformity. No lesions are appreciated. Cardiovascular: Regular rate and rhythm with a normal S1 and S2. No gallops, murmurs, or rubs. Normal PMI, no JVD. No pulse deficits. Respiratory: Lungs have equal breath sounds bilaterally, clear to auscultation and percussion. No rales, rhonchi or wheezes noted. No increased work of breathing, no retractions or nasal flaring. Abdomen/GI: Soft, non-tender, with normal bowel sounds. No distension or tympany. No guarding or rebound. No evidence of tenderness throughout. Back: No spinal tenderness. No costovertebral tenderness. Full range of motion. Male : Normal genitalia with no discharge or lesions. Skin: Warm, dry with normal turgor. Normal color with no rashes, no lesions, and no evidence of cellulitis. Neuro: Awake and alert, GCS 15, oriented to person, place, time, and situation. Cranial nerves II-XII grossly intact. Motor strength 5/5 in all extremities. Sensory grossly intact. Cerebellar exam normal. Normal gait. Psych: Awake, alert, with orientation to person, place and time. Behavior, mood, and affect are within normal limits. 09:30 ECG was reviewed by the Attending Physician. 09:40 Musculoskeletal/extremity: Circulation is intact in all extremities. Sensation intact. [facility] Compartment Syndrome exam of affected extremity: is normal. DVT Exam: no pain, no tenderness, negative Homans' sign noted on exam, no appreciated bluish discoloration, no erythema, no increased warmth, swelling, that is mild, Vital Signs: 07:35 BP 159 / 105; Pulse 54; Resp 16 S; Temp 98(O); Pulse Ox 99% on R/A; aa5 08:39 BP 171 / 80; Pulse 47; Resp 15; Pulse Ox 100% ; ko1 09:27 BP 175 / 97; Pulse 51; Resp 15; Pulse Ox 100% ; ko1 10:34 BP 166 / 69; Pulse 53; Resp 16; Pulse Ox 98% ; ko1 MDM: 07:32 Patient medically screened. [facility] 09:32 Differential diagnosis: hypertensive crisis, Malignant HTN. Data reviewed: vital signs, [facility] nurses notes, lab test result(s), EKG, radiologic studies, CT scan. Consideration of Admission/Observation Escalation of care including admission/observation considered. I considered the following discharge prescriptions or medication management in the emergency department Medications were administered in the Emergency Department. See MAR. Independent interpretation of the following test(s) in the Emergency Department EKG: See my EKG interpretation above. Test considered but Not performed: MRI: NO MRI BRAIN. Historians other than the Patient: Family Member: SON WELL INFORMED. Care significantly affected by the following chronic conditions: Hypertension, ALZHEIMERS, BPH, DEMENTIA, HIGH CHOLESTEROL. Counseling: I had a detailed discussion with the patient and/or guardian regarding the historical points, exam findings, and any diagnostic results supporting the discharge/admit diagnosis, the presence of at least one elevated blood pressure reading (>120/80) during this emergency department visit, lab results, radiology results, the need for outpatient follow up, for definitive care, a family practitioner, an wharf tender helper. 08/11 07:34 Order name: Basic Metabolic Panel; Complete Time: :[address] [facility] 08/11 07:34 Order name: CBC with Diff; Complete Time: :[address] [facility] 08/11 07:34 Order name: LFT's; Complete Time: 09:[address] [facility] 08/11 07:34 Order name: Magnesium; Complete Time: :[address] [facility] 08/11 07:34 Order name: NT PRO-BNP; Complete Time: :[address] [facility] 08/11 07:34 Order name: PT-INR; Complete Time: 09:[address] [facility] 08/11 07:34 Order name: Troponin HS; Complete Time: 09:[address] [facility] 08/11 07:34 Order name: Urinalysis w/ reflexes; Complete Time: 10:[address] [facility] 08/11 07:34 Order name: Lipase; Complete Time: 09:[address] [facility] 08/11 07:34 Order name: Flu; Complete Time: 09:[address] [facility] 08/11 07:34 Order name: SARS RAPID; Complete Time: 09:[address] [facility] 08/11 07:34 Order name: XRAY Chest (1 view); Complete Time: 09:[address] [facility] 08/11 07:34 Order name: CT Head Brain wo Cont; Complete Time: 09:[address] [facility] 08/11 07:34 Order name: EKG; Complete Time: 07:[address] [facility] 08/11 07:34 Order name: Cardiac monitoring; Complete Time: 07:[address] [facility] 08/11 07:34 Order name: EKG - Nurse/Tech; Complete Time: 08:[address] [facility] 08/11 07:34 Order name: IV Saline Lock; Complete Time: 07:[address] [facility] 08/11 07:34 Order name: Labs collected and sent; Complete Time: 07:[address] [facility] 08/11 07:34 Order name: O2 Per Protocol; Complete Time: 07:[address] [facility] 08/11 07:34 Order name: O2 Sat Monitoring; Complete Time: 07:[address] [facility] EC:30 Rate is 51 beats/min. Rhythm is regular. QRS [place] is Normal. HI interval is normal. QRS harpal interval is normal. QT interval is normal. No Q waves. T waves are Normal. No ST changes noted. Clinical impression: Sinus bradycardia and No evidence of ischemia. Interpreted by me. Reviewed by me. Administered Medications: 07:53 Drug: NS 0.9% IV 500 ml IV at bolus once Route: IV; Rate: bolus; Site: right ko1 antecubital; 09:46 Drug: Norvasc PO 5 mg PO once Route: PO; ko1 Disposition Summary: 08/11/23 10:27 Discharge Ordered Notes: Location: Home harpal Problem: new harpal Symptoms: have improved harpal Condition: Stable harpal Diagnosis - Essential (primary) hypertension harpal - Dementia in other diseases classified elsewhere without behavioral disturbance harpal - Alzheimer's disease, unspecified harpal - Bradycardia, unspecified harpal - Edema, unspecified harpal Followup: harpal - With: Private Physician - When: 2 - 3 days - Reason: Recheck today's complaints, Continuance of care, Re-evaluation by your physician Discharge Instructions: - Discharge Summary Sheet harpal - Bradycardia, Adult harpal - Dementia harpal - Hypertension, Adult harpal - Hypertension, Adult, [id number] harpal - Edema, [id number]-[id number] harpal - How to Take Your Blood Pressure, [id number] harpal - Aspirin and Your Heart harpal - Alzheimer's Disease Caregiver Guide, [id number] harpal - Managing Your Hypertension harpal - How to Take Your Blood Pressure harpal - Dementia Caregiver Guide harpal Forms: - Medication Reconciliation Form harpal - Thank You Letter harpal - Antibiotic Education harpal - Prescription Opioid Use harpal - Patient Portal Instructions harpal - Leadership Thank You Letter harpal Prescriptions: - Norvasc 5 mg Oral Tablet - take 1 tablet ORAL route once daily; 20 tablet; Refills: 0, Product Selection harpal Permitted Signatures: Dispatcher [employer] Nathan Leija MD MD cha Calderon, Audri RN RN aa5 Sasha Ingram RN RN ko1 Corrections: (The following items were deleted from the chart) 07:35 07:33 PMHx: COVID; aa5 aa5
[2023-08-11 11:18] VITALS: BP 166/69; TEMP 98; O2SAT 98
--- NOTE | 2023-08-11 16:25 | EKG ---
Test Date: 2023-08-11 Test Time: 08:07:37 [place]: MULU MEASUREMENT RESULTS: Intervals: Rate: 51 ID: [id number] QRSD: 96 QT: 478 QTc: 440 [place]: P: -55 ID: [id number] QRS: 65 T: 47 INTERPRETIVE STATEMENTS: Unusual P axis, possible ectopic atrial bradycardia Abnormal ECG Compared to ECG 09/25/2022 19:26:13 Sinus rhythm no longer present Incomplete right bundle-branch block no longer present Electronically Signed On 08-11-23 16:23:56 SCADA TECHNICIAN by Rafael Contreras
== END ==
LOC: ER 07:21
DX: I10 Essential (primary) hypertension (principal); R00.1 Bradycardia, unspecified; G30.9 Alzheimer's disease, unspecified; F02.80 Dementia in other diseases classified elsewhere, unspecified severity, without behavioral disturbance, psychotic disturbance, mood disturbance, and anxiety; R60.9 Edema, unspecified; N40.0 Benign prostatic hyperplasia without lower urinary tract symptoms; E78.00 Pure hypercholesterolemia, unspecified; E03.9 Hypothyroidism, unspecified; Z66 Do not resuscitate; Z11.52 Encounter for screening for COVID-19
CPT/HCPCS: 93005; 85025; 81001; 80048; 36415; 83735; 85610; 80076; 84484; 83690; 83880; 87804 ×2; 70450; 71045; 99285; 87811; J7040

== ENCOUNTER 2024-06-24 18:05 | Emergency (ER) | payer OTHER ==
[2024-06-24 19:02] LABS: Absolute Basophils 0.1 K/uL (0-0.5); Absolute Eosinophils 0.2 K/uL (0-0.5); Absolute Lymphocytes (CBC) 1.7 K/uL (0.7-4.9); Absolute Monocytes 0.9 K/uL (0.1-1.3); Absolute Neutrophil 7.1 K/uL (1.8-8.0); Basophils % 0.6 % (0-1.3); Eosinophils % 1.6 % (0-4.4); Hematocrit 37.9 % (39.6-49.0); Hemoglobin 12.8 g/dL (13.6-17.9); Lymphocytes % 16.7 % (15.3-44.8); MCH 32.4 pg (27.0-35.0); MCHC 33.8 g/dL (32.0-36.0); MCV 95.8 fL (80-100); MPV 7.4 fL (7.6-11.3); Monocytes % 9.5 % (3.3-12.3); Neutrophils % 71.6 % (41.7-73.7); PT Prothrombin Time 11.7 SECONDS (9.4-12.5); Platelets 309 thou/uL (152-406); Protime INR 1.05; RBC Red Blood Cell Count 3.96 M/uL (4.33-5.43); Red Cell Distribution Width 15.5 % (12.1-15.2)
[2024-06-24 19:18] LABS: ALT/SGPT 18 U/L (16-61); AST/SGOT 23 U/L (15-37); Albumin 3.1 g/dL (3.4-5.0); Albumin/Globulin Ratio 0.8 (1.1-1.8); Alkaline Phosphatase 119 U/L (45-117); BUN Blood Urea Nitrogen 49 mg/dL (7-18); Bicarbonate 26 mEq/L (21-32); Bilirubin Total 0.4 mg/dL (0.2-1.0); Globulin 3.7 g/dL (2.3-3.5); Glomerular Filtration Rate 26 ml/min (=/>90); Glucose Level 98 mg/dL (74-106); Magnesium 2.3 mg/dL (1.6-2.4); NT PRO-BNP 737 pg/mL (<450); Protein, Total 6.8 g/dL (6.4-8.2); Sodium Level 141 mEq/L (136-145); Troponin High Sensitivity 10.6 pg/mL (<58.9)
[2024-06-24 19:20] LABS: Bilirubin Direct < 0.2 mg/dL (0-0.2); Bilirubin Indirect, Calculated 0.2 mg/dL (0.2-0.8)
--- NOTE | 2024-06-24 19:28 | RAD REPORT ---
EXAM: Chest Single View HISTORY: AMS COMPARISON: 08/11/2023 FINDINGS: LUNGS/PLEURA: The lungs are clear. No pleural effusions or pneumothorax. No pulmonary edema. Elevated right hemidiaphragm. MEDIASTINUM: The mediastinal silhouette is within normal limits. CARDIAC: The cardiac silhouette is within normal limits. UPPER ABDOMEN: No significant abnormality. BONES: No acute fracture. LINES/TUBES/OTHER: N/A IMPRESSION: No evidence of acute cardiopulmonary disease.
--- NOTE | 2024-06-24 20:49 | RAD REPORT ---
EXAMINATION: CT HEAD WITHOUT CONTRAST CLINICAL INDICATION: Male, 84 years old.AMS TECHNIQUE: Axial CT images from the skull base to the vertex without intravenous contrast. Coronal an d sagittal reformatted images were created from the data set. One or more of the following dose reduction techniques were used: Automated exposure control, adjustment of the mA and/or kV according to patient size, and/or iterative reconstruction. Unless otherwise specified, incidental findings do not require dedicated imaging follow-up. [id number]. COMPARISON: 08/11/2023 FINDINGS: INTRACRANIAL: No acute intracranial hemorrhage. No hydrocephalus. No mass effect or midline shift. Mo derate chronic small vessel ischemic changes. Cerebral atrophy. VASCULATURE: No visualized abnormalities in the arteries or dural venous sinuses. SCALP/SKULL: No significant soft tissue or osseous abnormalities. SINUSES: The visualized paranasal sinuses and mastoid air cells are predominantly clear. IMPRESSION: No acute intracranial abnormality.
[2024-06-24] MEDS ORDERED: NA CHLORIDE 0.9% 1,000 ML ONE (21:07)
[2024-06-24] MEDS ORDERED: DIAZEPAM 10 MG/2 ML INJ SYRINGE ONE (23:50)
--- NOTE | 2024-06-25 01:10 | ER ---
Nurse's Notes [facility] Name: Shaheen Riddle Age: 84 yrs Sex: Male : 1940 Arrival Date: 06/24/2024 Time: 18:05 Bed 16 Private MD: Diagnosis: Dehydration;Unresponsiveness Presentation: 06/24 18:17 Chief complaint: EMS states: alf toned out EMS for sudden onset rs5 unresponsiveness x3 min, no compressions initiated by staff. Pt is on hospice and is a DNR. Pt was awake, alert, and bradycardic in 40's for EMS on scene. 0.5 mg atropine adm by EMS 20 min prior to arrival. 18:17 Coronavirus screen: At this time, the client does not indicate any symptoms associated rs5 with coronavirus-19. Ebola Screen: No symptoms or risks identified at this time. Initial Sepsis Screen: Does the patient meet any 2 criteria? No. Patient's initial sepsis screen is negative. Does the patient have a suspected source of infection? No. Patient's initial sepsis screen is negative. Risk Assessment: Do you want to hurt yourself or someone else? Patient reports no desire to harm self or others. Onset of symptoms was June 24, 2024. Care prior to arrival: Medication(s) given: 0.5 mg atropine IV initiated. 20 GA, in the left antecubital area. 18:17 Method Of Arrival: EMS: [facility] rs5 18:17 Acuity: SALVADOR 2 rs5 Triage Assessment: 18:21 General: Appears uncomfortable, Behavior is calm, cooperative. Pain: Denies pain. rs5 Neuro: Level of Consciousness is awake, alert, Oriented to person. Historical: - PMHx: 18:21 benign prostatic hyperplasia; Dementia; Hypertensive disorder; Hypercholesterolemia; rs5 Alzheimer's disease; Hypothyroidism; - Immunization history:: Adult Immunizations up to date. - Infectious Disease History:: Denies. - Social history:: Smoking status: unknown. Screenin:20 [facility] ED Fall Risk Assessment (Adult) History of falling in the last 3 months, rs5 including since admission Yes- single mechanical fall (1 pt) Confusion or Disorientation Yes (5 pts) Intoxicated or Sedated No (0 pts) Impaired Gait Yes (1 pt) Mobility Assist Device Used Yes (1 pt) Altered Elimination No (0 pt) Score/Fall Risk Level 3 or more points = High Risk Oriented to surroundings, Maintained a safe environment, Provided non-skid footwear, Hourly rounding (assess needs \T\ fall precautionary measures) done. 18:20 Abuse screen: Denies threats or abuse. Nutritional screening: No deficits noted. rs5 Tuberculosis screening: No symptoms or risk factors identified. Assessment: 18:20 General: Appears in no apparent distress. comfortable, Behavior is calm, cooperative. rs5 Pain: Denies pain. Neuro: Level of Consciousness is awake, alert, obeys commands, Oriented to person, place, time. Cardiovascular: Patient's skin is warm and dry. Respiratory: Airway is patent Respiratory effort is even, unlabored, Respiratory pattern is regular, symmetrical. GI: Abdomen is round non-distended, Abd is soft and non tender X 4 quads. : No signs and/or symptoms were reported regarding the genitourinary system. EENT: No signs and/or symptoms were reported regarding the EENT system. Derm: Skin is intact, Skin is pink, warm \T\ dry. Musculoskeletal: Range of motion: intact in all extremities. 18:45 Reassessment: Patient and/or family updated on plan of care and expected duration. Pain rs5 level reassessed. Patient is alert, oriented x 3, equal unlabored respirations, skin warm/dry/pink. 20:08 Reassessment: Patient appears in no apparent distress at this time. Patient and/or bm8 family updated on plan of care and expected duration. Pain level reassessed. Patient is alert, oriented x 3, equal unlabored respirations, skin warm/dry/pink. Patient denies pain at this time. General: Appears in no apparent distress. comfortable, Behavior is calm, cooperative, appropriate for age. Pain: Denies pain. Neuro: Level of Consciousness is awake, alert, obeys commands, Oriented to person, place, situation, Appropriate for age. Cardiovascular: Denies chest pain, Capillary refill < 3 seconds in bilateral fingers Patient's skin is warm and dry. Respiratory: Airway is patent Respiratory effort is even, unlabored, Respiratory pattern is regular, symmetrical. GI: No signs and/or symptoms were reported involving the gastrointestinal system. : No signs and/or symptoms were reported regarding the genitourinary system. EENT: No signs and/or symptoms were reported regarding the EENT system. Derm: No signs and/or symptoms reported regarding the dermatologic system. Musculoskeletal: No signs and/or symptoms reported regarding the musculoskeletal system. 21:05 Reassessment: Patient appears in no apparent distress at this time. No changes from bm8 previously documented assessment. Patient and/or family updated on plan of care and expected duration. Pain level reassessed. Patient is alert, oriented x 3, equal unlabored respirations, skin warm/dry/pink. after pt's refusal for straight cath, pur wic applied to pt. 22:18 Reassessment: Patient appears in no apparent distress at this time. No changes from bm8 previously documented assessment. Patient and/or family updated on plan of care and expected duration. Pain level reassessed. Patient is alert, oriented x 3, equal unlabored respirations, skin warm/dry/pink. awaiting a urine sample Patient denies pain at this time. Patient states feeling better. Patient states symptoms have improved. 23:43 Reassessment: Patient appears in no apparent distress at this time. Patient and/or 8 family updated on plan of care and expected duration. Pain level reassessed. Patient is alert, oriented x 3, equal unlabored respirations, skin warm/dry/pink. pt is beginning to , is starting to pull at all his cardiac leads and attempting to get out of bed. Provider informed Patient denies pain at this time. Patient states feeling better. Patient states symptoms have improved. 06/25 01:17 Reassessment: pt awaiting transport. [facility] 01:22 Reassessment: called and spoke to Demetrice Castillo she stated that she would be on the way [facility] to pick Shaheen up shortly. 02:10 Reassessment: daughter here to take pt home. bm8 Vital Signs: 1208 18:17 BP 134 / 76; Pulse 71; Resp 17; Temp 98(O); Pulse Ox 98% on R/A; rs5 20:08 BP 146 / 76; Pulse 62; Resp 18; Temp 98.7; Pulse Ox 99% ; Pain 0/10; bm8 22:18 BP 127 / 60; Pulse 63; Resp 12; Temp 98.7; Pulse Ox 96% ; Pain 0/10; bm8 23:43 BP 114 / 88; Pulse 69; Resp 18; Temp 98.7; Pulse Ox 94% ; Pain 0/10; bm8 06/25 00:55 BP 153 / 58; Pulse 54; Resp 18; Temp 98.7; Pulse Ox 98% ; Pain 0/10; bm8 02:10 BP 145 / 61; Pulse 62; Resp 18; Temp 97.8; Pulse Ox 100% ; Pain 0/10; bm8 20:08 Pain Scale: Adult bm8 22:18 Pain Scale: Adult bm8 23:43 Pain Scale: Adult bm8 06/25 00:55 Pain Scale: Adult bm8 02:10 Pain Scale: Adult bm8 Sharon Coma Score: 06/24 20:08 Eye Response: spontaneous(4). Motor Response: obeys commands(6). Verbal Response: bm8 oriented(5). Total: 15. 22:18 Eye Response: spontaneous(4). Motor Response: obeys commands(6). Verbal Response: bm8 oriented(5). Total: 15. 23:43 Eye Response: spontaneous(4). Motor Response: obeys commands(6). Verbal Response: bm8 oriented(5). Total: 15. 06/25 00:55 Eye Response: spontaneous(4). Motor Response: obeys commands(6). Verbal Response: bm8 oriented(5). Total: 15. 02:10 Eye Response: spontaneous(4). Motor Response: obeys commands(6). Verbal Response: bm8 oriented(5). Total: 15. ED Course: 06/24 18:17 Patient arrived in ED. rs5 18:20 Patient has correct armband on for positive identification. Placed in gown. Bed in low rs5 position. Call light in reach. Side rails up X2. 18:20 No provider procedures requiring assistance completed. rs5 18:20 Maintain EMS IV. Dressing intact. Good blood return noted. Site clean \T\ dry. Gauge \T\ rs 5 site: 18 g LAC. Flushed with 10 mL NS. 18:21 Triage completed. rs5 19:01 Andreas Arredondo MD is Attending Physician. ec2 19:20 XRAY Chest (1 view) In Process Unspecified. EDMS 19:26 Taco Shepard, RN is Primary Nurse. bm8 20:08 Client placed on continuous cardiac and pulse oximetry monitoring. NIBP monitoring bm8 applied. internist medical doctor md on. Pulse ox on. NIBP on. Door closed. Noise minimized. Warm blanket given. Pillow given. Verbal reassurance given. Head of bed elevated. 20:08 Patient maintains SpO2 saturation greater than 95% on room air. bm8 20:35 CT Head Brain wo Cont In Process Unspecified. EDMS 06/25 00:55 IV discontinued, intact, bleeding controlled, No redness/swelling at site. Pressure bm8 dressing applied, pt pulled his own IV out. 02:10 Provided Education on: post er care. bm8 02:12 Arm band placed on right wrist. bm8 Administered Medications: 06/24 19:00 Drug: NS 0.9% IV 1000 ml IV at 1000 ml once; to be given as a bolus over 60 minutes bm8 Route: IV; Rate: 1000 ml; Site: left antecubital; 20:10 Follow up: Response: No adverse reaction; IV Status: Completed infusion; IV Intake: bm8 1000ml 23:55 Drug: Diazepam IVP 2 mg IVP once Route: IVP; Site: left antecubital; bm8 06/25 00:54 Follow up: Response: No adverse reaction bm8 Medication: 06/24 19:40 VIS not applicable for this client. rs5 Intake: 20:10 IV: 1000ml; Total: 1000ml. bm8 Outcome: 06/25 01:10 Discharge ordered by . ec2 02:10 Discharged to home via wheelchair, bm8 02:10 Condition: stable 02:10 Discharge instructions given to patient, family, Instructed on discharge instructions, follow up and referral plans. medication usage, safety practices, Demonstrated understanding of instructions, follow-up care, medications, 02:26 Patient left the ED. bm8 Signatures: Dispatcher [employer] Rupesh Santos, RN RN rs5 Andreas Arredondo MD MD ec2 Taco Shepard RN RN bm8
--- NOTE | 2024-06-25 01:10 | EDPHYS ---
Physician Documentation [facility] Name: Shaheen Riddle Age: 84 yrs Sex: Male : 1940 Arrival Date: 06/24/2024 Time: 18:05 Bed 16 Private MD: ED Physician Andreas Arredondo HPI: 06/24 19:19 This 84 yrs old Male presents to ER via EMS with complaints of AMS, ec2 unresponsiveness. 21:42 Patient arrives today for transient unresponsiveness. Patient reportedly was ec2 unresponsive and subsequently came to by the time EMS arrived. Patient with no specific concerns. History of dementia and is a poor historian. Patient has no specific complaints.. Historical: - PMHx: 18:21 benign prostatic hyperplasia; Dementia; Hypertensive disorder; Hypercholesterolemia; rs5 Alzheimer's disease; Hypothyroidism; - Immunization history:: Adult Immunizations up to date. - Infectious Disease History:: Denies. - Social history:: Smoking status: unknown. ROS: 21:42 Constitutional: as per hpi ec2 Exam: 21:42 Constitutional: GEN: NAD Head: atraumatic Eyes: EOMI Ears: External ears are ec2 normal. CV: regular rate LUNGS: no respiratory distress ABD: non-distended, soft, nontender, not guarding, not rigid SKIN: no evidence of rashes MSK: no evidence of trauma Vital Signs: 18:17 BP 134 / 76; Pulse 71; Resp 17; Temp 98(O); Pulse Ox 98% on R/A; rs5 20:08 BP 146 / 76; Pulse 62; Resp 18; Temp 98.7; Pulse Ox 99% ; Pain 0/10; bm8 22:18 BP 127 / 60; Pulse 63; Resp 12; Temp 98.7; Pulse Ox 96% ; Pain 0/10; bm8 23:43 BP 114 / 88; Pulse 69; Resp 18; Temp 98.7; Pulse Ox 94% ; Pain 0/10; bm8 12/09 00:55 BP 153 / 58; Pulse 54; Resp 18; Temp 98.7; Pulse Ox 98% ; Pain 0/10; bm8 02:10 BP 145 / 61; Pulse 62; Resp 18; Temp 97.8; Pulse Ox 100% ; Pain 0/10; bm8 20:08 Pain Scale: Adult bm8 22:18 Pain Scale: Adult bm8 23:43 Pain Scale: Adult bm8 06/25 00:55 Pain Scale: Adult bm8 02:10 Pain Scale: Adult bm8 Shaorn Coma Score: 06/24 20:08 Eye Response: spontaneous(4). Motor Response: obeys commands(6). Verbal Response: bm8 oriented(5). Total: 15. 22:18 Eye Response: spontaneous(4). Motor Response: obeys commands(6). Verbal Response: bm8 oriented(5). Total: 15. 23:43 Eye Response: spontaneous(4). Motor Response: obeys commands(6). Verbal Response: bm8 oriented(5). Total: 15. 06/25 00:55 Eye Response: spontaneous(4). Motor Response: obeys commands(6). Verbal Response: bm8 oriented(5). Total: 15. 02:10 Eye Response: spontaneous(4). Motor Response: obeys commands(6). Verbal Response: bm8 oriented(5). Total: 15. MDM: 06/24 18:41 Medical Screening Exam initiated sp3 19:22 Data reviewed: vital signs, nurses notes. ED course: EKG obtained, independently ec2 reviewed and interpreted by me, shows normal sinus rhythm, rate of 72, no acute ST segment elevations, intervals are nonactionable, PACs noted. 19:59 ED course: Metabolic profile with renal dysfunction with a creatinine of 2.39 and GFR ec2 of 26. CBC is reassuring. LFTs are nonactionable. BNP minimally elevated. Troponin is within normal ranges. Chest x-ray shows no acute intrathoracic process.. 21:42 ED course: Patient arrives today for reported altered mental status. Examination is ec2 unrevealing. Lab work shows acute kidney injury. Patient otherwise with no focal neurologic examination. CT scan of the head with no acute intracranial process.. 06/24 18:41 Order name: Basic Metabolic Panel; Complete Time: 19:59 sp3 06/24 18:41 Order name: CBC with Diff; Complete Time: 19:59 sp3 06/24 18:41 Order name: LFT's; Complete Time: 19:59 sp3 06/24 18:41 Order name: Magnesium; Complete Time: 19:59 sp3 12/08 18:41 Order name: NT PRO-BNP; Complete Time: 19:59 sp3 06/24 18:41 Order name: PT-INR; Complete Time: 19:59 sp3 06/24 18:41 Order name: Troponin HS; Complete Time: 19:59 sp3 06/24 21:53 Order name: BMP; Complete Time: 01:10 ec2 06/24 18:41 Order name: XRAY Chest (1 view); Complete Time: 19:59 sp3 06/24 19:19 Order name: CT Head Brain wo Cont; Complete Time: 20:55 ec2 06/24 18:41 Order name: Cardiac monitoring; Complete Time: 20:11 sp3 06/24 18:41 Order name: EKG - Nurse/Tech; Complete Time: 19:27 sp3 06/24 18:41 Order name: IV Saline Lock; Complete Time: 20:11 sp3 06/24 18:41 Order name: Labs collected and sent; Complete Time: 20:11 sp3 06/24 18:41 Order name: O2 Per Protocol; Complete Time: 20:11 sp3 06/24 18:41 Order name: O2 Sat Monitoring; Complete Time: 20:11 sp3 06/24 23:25 Order name: Misc. Order: repeat bmp; Complete Time: 23:42 ec2 Administered Medications: 19:00 Drug: NS 0.9% IV 1000 ml IV at 1000 ml once; to be given as a bolus over 60 minutes bm8 Route: IV; Rate: 1000 ml; Site: left antecubital; 20:10 Follow up: Response: No adverse reaction; IV Status: Completed infusion; IV Intake: bm8 1000ml 23:55 Drug: Diazepam IVP 2 mg IVP once Route: IVP; Site: left antecubital; bm8 06/25 00:54 Follow up: Response: No adverse reaction bm8 Disposition Summary: 06/25/24 01:10 Discharge Ordered Notes: Location: Home ec2 Condition: Stable ec2 Diagnosis - Dehydration ec2 - Unresponsiveness ec2 Followup: ec2 - With: Private Physician - When: - Reason: Re-evaluation by your physician Discharge Instructions: - Discharge Summary Sheet ec2 - Dehydration, Adult ec2 Forms: - Medication Reconciliation Form ec2 - Antibiotic Education ec2 - Prescription Opioid Use ec2 - Patient Portal Instructions ec2 - Leadership Thank You Letter ec2 Signatures: Dispatcher [employer] EDMS Luis Powell MD MD sp3 Rupesh Browning, RN RN rs5 Andreas Arredondo MD MD ec2 Taco Shepard, RN RN bm8 Corrections: (The following items were deleted from the chart) 06/24 18:42 18:42 BASIC METABOLIC PANEL+C.LAB.BRZ ordered. EDMS EDMS 18:42 18:42 CBC+H.LAB.BRZ ordered. EDMS EDMS 18:42 18:42 HEPATIC FUNCTION+C.LAB.BRZ ordered. EDMS EDMS 18:42 18:42 MAGNESIUM+C.LAB.BRZ ordered. EDMS EDMS 18:42 18:42 PROBNP+C.LAB.BRZ ordered. EDMS EDMS 18:42 18:42 PROTIME (+INR)+COAG.LAB.BRZ ordered. EDMS EDMS 18:42 18:42 Troponin High Sensitivity+C.LAB.BRZ ordered. EDMS EDMS 18:42 18:42 Chest Single View+RAD.RAD.BRZ ordered. EDMS EDMS 19:19 19:19 Head Brain Wo Cont+CT.RAD.BRZ ordered. EDMS EDMS 20:11 19:18 Biggs ordered. ec2 bm8
[2024-06-25 08:36] VITALS: BP 145/61; TEMP 97.8; O2SAT 100
== END 2024-06-25 02:26 | disposition home or self-care (01) ==
LOC: ER 18:05
DX: E86.0 Dehydration (principal); R40.4 Transient alteration of awareness; I10 Essential (primary) hypertension; G30.9 Alzheimer's disease, unspecified; F02.80 Dementia in other diseases classified elsewhere, unspecified severity, without behavioral disturbance, psychotic disturbance, mood disturbance, and anxiety
CPT/HCPCS: 96361; 85025; 80048 ×2; 36415; 83735; 85610; 80076; 84484; 83880; 70450; 71045; 96374; 99285; J3360; J7030

== ENCOUNTER 2024-08-13 00:51 | Emergency (ER) | payer OTHER ==
--- NOTE | 2024-08-13 02:49 | EDPHYS ---
Physician Documentation [facility] Name: Shaheen Riddle Age: 84 yrs Sex: Male : 1940 Arrival Date: 08/13/2024 Time: 00:51 Bed 19 Private MD: ED Physician Jon Jauregui HPI: 08/13 01:09 This 84 yrs old Male presents to ER via Unassigned with complaints of Fall Injury. ms3 01:09 Mr. Shaheen Riddle, an 84 year old male with a past medical history of dementia, ms3 presents to the Emergency Department following a fall. EMS states patient was walking from his wheelchair to the bathroom. They report patient is not suppose to be ambulating. He reports soreness in his neck and head but describes the pain as not severe. There is no loss of consciousness reported. He also has a history of urinary tract infections, hyperlipidemia, benign prostatic hyperplasia (BPH), edema, COVID-19, and hypertension.. Historical: - Home Meds: 03:15 atorvastatin 40 mg Oral Tablet daily [Active]; donepezil 5 mg Oral Tablet every day at ay bedtime [Active]; donepezil 10 mg Oral Tablet daily [Active]; hydrochlorothiazide 25 mg Oral Tablet daily [Active]; losartan 100 mg Oral Tablet daily [Active]; melatonin 10 mg Oral Tablet every day at bedtime [Active]; quetiapine 50 mg Oral Tablet 3 times per day [Active]; tamsulosin 0.4 mg Oral capsule daily [Active]; - PMHx: 03:15 Alzheimer's disease; benign prostatic hyperplasia; Dementia; Hypercholesterolemia; ay Hypertensive disorder; Hypothyroidism; - Immunization history:: Adult Immunizations unknown. - Infectious Disease History:: Denies. - Social history:: Smoking status: unknown. ROS: 01:09 Constitutional: Negative for fever, and chills. Cardiovascular: Negative for chest ms3 pain, and palpitations. Respiratory: Negative for shortness of breath, cough, wheezing, and pleuritic chest pain, Abdomen/GI: Negative for abdominal pain, nausea, vomiting, diarrhea, and constipation, 01:09 MS/extremity: Positive for mild neck pain, 01:09 Neuro: Positive for headache, Exam: 01:09 Constitutional: This is a well developed, well nourished patient who is awake, alert, ms3 and in no acute distress. Head/Face: Normocephalic, atraumatic. Cardiovascular: Regular rate and rhythm with a normal S1 and S2. No gallops, murmurs, or rubs. Normal PMI, no JVD. No pulse deficits. Respiratory: Lungs have equal breath sounds bilaterally, clear to auscultation and percussion. No rales, rhonchi or wheezes noted. No increased work of breathing, no retractions or nasal flaring. Abdomen/GI: Soft, non-tender, with normal bowel sounds. No distension or tympany. No guarding or rebound. No evidence of tenderness throughout. Skin: Warm, dry with normal turgor. Normal color with no rashes, no lesions, and no evidence of cellulitis. Vital Signs: 01:00 BP 134 / 64; Pulse 62; Resp 20; Pulse Ox 92% on R/A; ay 03:45 BP 118 / 84; Pulse 60; Resp 19; Pulse Ox 99% ; ay MDM: 00:56 Medical Screening Exam initiated ms3 01:09 Differential diagnosis: closed head injury, contusion, fracture, sprain, strain. ms3 03:00 Data reviewed: vital signs, nurses notes, radiologic studies, CT scan, and as a result, ms3 I will discharge patient. Historians other than the Patient: EMS: [facility]. Counseling: I had a detailed discussion with the patient and/or guardian regarding the historical points, exam findings, and any diagnostic results supporting the discharge/admit diagnosis, radiology results, the need for outpatient follow up, to return to the emergency department if symptoms worsen or persist or if there are any questions or concerns that arise at home. ED course: Discussed left apex spiculated mass with patient. Discussed with patient's primary nurse to discuss mass with patient's facility on nursing report. Patient to follow-up primary care physician 2 to 3 days. All questions were answered. Patient remains in stable condition, alert, in no apparent distress, nontoxic-appearing.. 08/13 00:57 Order name: CT Head C Spine ms3 Administered Medications: No medications were administered Disposition Summary: 08/13/24 02:49 Discharge Ordered Notes: Location: Home ms3 Condition: Stable ms3 Diagnosis - Fall on same level, unspecified ms3 - Spiculated 1.2 cm nodule in the left lung apex ms3 Followup: ms3 - With: Private Physician - When: 2 - 3 days - Reason: Recheck today's complaints Discharge Instructions: - Discharge Summary Sheet ms3 - Pulmonary Nodule, [id number] ms3 - Fall Prevention in Hospitals, Adult ms3 Forms: - Medication Reconciliation Form ms3 - Antibiotic Education ms3 - Prescription Opioid Use ms3 - Patient Portal Instructions ms3 - Leadership Thank You Letter ms3 Signatures: Dispatcher [employer] EDJon Johnson, DO ms3 Silvia Dobson RN RN ay Corrections: (The following items were deleted from the chart) 01:11 01:09 Mr. Shaheen Riddle, an 84 year old male with a past medical history of dementia, ms3 presents to the Emergency Department following a fall. He reports soreness in his neck and head but describes the pain as not severe. There is no loss of consciousness reported. He also has a history of urinary tract infections, hyperlipidemia, benign prostatic hyperplasia (BPH), edema, COVID-19, and hypertension.. ms3
--- NOTE | 2024-08-13 03:34 | RAD REPORT ---
EXAM: CT Head and Cervical Spine Without Intravenous Contrast CLINICAL HISTORY: The patient is 84 years old and is Male; fall TECHNIQUE: Axial computed tomography images of the head/brain and cervical spine without intravenous contrast. Sagittal and coronal reformatted images were created and reviewed. This CT exam was performed using one or more of the following dose reduction techniques: automated exposure control, adjustmen t of the mA and/or kV according to patient size, and/or use of iterative reconstruction technique. COMPARISON: CT June 24, 2024 and November 05, 2022.. FINDINGS: BRAIN: There is diffuse cerebral atrophy present, consistent with this patient's age. There is patchy hypoattenuation of the deep white matter which is non-specific, but most likely owing to chronic small vessel ischemic change in a patient of this age group. No intracranial hemorrhage, ma ss effect, midline shift is seen. There are no extra-axial fluid collections. The liang-white differentiation is maintained. VENTRICLES: Unremarkable. No ventriculomegaly. SKULL: No acute fracture. SINUSES: Unremarkable as visualized. No acute sinusitis. MASTOID AIR CELLS: Unremarkable as visualized. No mastoid effusion. VERTEBRAE: Irregularity of the tip of the odontoid is present with cystic change and sclerosis. T he vertebral body heights are maintained. Anterolisthesis of C4 on C5 secondary to facet arthropathy is noted. There is no acute fracture. DISCS/SPINAL CANAL/NEURAL FORAMINA: Intervertebral disc space narrowing with endplate irregularit y at C5-C6 is present with posterior osteophyte formation and neural foraminal narrowing. The remaining intervertebral disc spaces are relatively maintained. There is no significant canal stenosi s. SOFT TISSUES: The soft tissues are normal. VASCULATURE: Atherosclerosis of intracranial vasculature is present. THYROID: The thyroid gland is enlarged. LUNG APICES: A spiculated nodule within the left lung apex measuring 1.2 cm is present. IMPRESSION: 1. No acute intracranial findings. 2. 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 3. Spiculated 1.2 cm nodule in the left lung apex. Per Fleischner Society Guidelines, recommend pro mpt non-contrast Chest CT for further evaluation. Electronically signed by: Ivette Simon MD 08/13/2024 02:21 AM [facility] Due to temporary technical issues with the PACS/[employer]bEye reporting system, reports are being matt d by the in-house radiologist without review as a courtesy to ensure prompt reporting the interpreting radiologist is fully responsible for the content of the report. Transcribed Date/Time: 08/13/2024 3:34 AM
--- NOTE | 2024-08-13 04:00 | ER ---
Nurse's Notes [facility] Name: Shaheen Riddle Age: 84 yrs Sex: Male : 1940 Arrival Date: 08/13/2024 Time: 00:51 Bed 19 Private MD: Diagnosis: Fall on same level, unspecified;Spiculated 1.2 cm nodule in the left lung apex Presentation: 08/13 01:00 Chief complaint: EMS states: Fall. Coronavirus screen: Client denies travel out of the [place] in the last 14 days. Ebola Screen: No symptoms or risks identified at this time. Initial Sepsis Screen: Does the patient meet any 2 criteria? No. Patient's initial sepsis screen is negative. Does the patient have a suspected source of infection? No. Patient's initial sepsis screen is negative. Risk Assessment: Do you want to hurt yourself or someone else? Patient reports no desire to harm self or others. Note Per EMS pt fell when he was trying to move from the toilet to his walker. Pt endorsed hitting the left side of his head but denies LOC. Pt not on blood thinner. Pt is Hospice care from [facility]. Pt has dementia and Hx of HTN. Onset of symptoms was August 12, 2024. 01:00 Method Of Arrival: EMS: [facility] ay 01:00 Acuity: [place] 3 ay Triage Assessment: 01:00 General: Appears in no apparent distress. comfortable, Behavior is calm, cooperative. ay Pain: Denies pain. EENT: No signs and/or symptoms were reported regarding the EENT system. Neuro: Level of Consciousness is awake, alert, obeys commands, Oriented to person, Speech is normal. Cardiovascular: Capillary refill < 3 seconds. Respiratory: Airway is patent Respiratory effort is even, unlabored, Respiratory pattern is regular, symmetrical. GI: Abdomen is round. : No signs and/or symptoms were reported regarding the genitourinary system. Derm: No signs and/or symptoms reported regarding the dermatologic system. Historical: - Home Meds: 03:15 atorvastatin 40 mg Oral Tablet daily [Active]; donepezil 5 mg Oral Tablet every day at ay bedtime [Active]; donepezil 10 mg Oral Tablet daily [Active]; hydrochlorothiazide 25 mg Oral Tablet daily [Active]; losartan 100 mg Oral Tablet daily [Active]; melatonin 10 mg Oral Tablet every day at bedtime [Active]; quetiapine 50 mg Oral Tablet 3 times per day [Active]; tamsulosin 0.4 mg Oral capsule daily [Active]; - PMHx: 03:15 Alzheimer's disease; benign prostatic hyperplasia; Dementia; Hypercholesterolemia; ay Hypertensive disorder; Hypothyroidism; - Immunization history:: Adult Immunizations unknown. - Infectious Disease History:: Denies. - Social history:: Smoking status: unknown. Screenin:00 [facility] ED Fall Risk Assessment (Adult) History of falling in the last 3 months, ay including since admission Yes- single mechanical fall (1 pt) Confusion or Disorientation Yes (5 pts) Intoxicated or Sedated No (0 pts) Impaired Gait Yes (1 pt) Mobility Assist Device Used Yes (1 pt) Altered Elimination No (0 pt) Score/Fall Risk Level 3 or more points = High Risk Oriented to surroundings, Maintained a safe environment, Educated pt \T\ family on fall prevention, incl call for assistance when getting out of bed. Abuse screen: Denies threats or abuse. Denies injuries from another. Nutritional screening: No deficits noted. Tuberculosis screening: No symptoms or risk factors identified. Assessment: 01:00 General: See Triage Assessment. ay 03:35 Reassessment: Report called in to [facility]. Report given to alfonso Bashir, about ay pt condition and a report about a mass found in pt's left lung on X ray and the need for a follow up. 04:03 Reassessment: Called kaylynn Suresh to arrange for transport of pt back to [facility]. ay Report of mass found in left lung was also relayed to kaylynn Suresh. Vital Signs: 01:00 BP 134 / 64; Pulse 62; Resp 20; Pulse Ox 92% on R/A; ay 03:45 BP 118 / 84; Pulse 60; Resp 19; Pulse Ox 99% ; ay ED Course: 00:53 Patient arrived in ED. [id number] 00:56 Jon Jauregui DO is Attending Physician. ms3 01:00 Arm band placed on right wrist. ay 01:00 Patient has correct armband on for positive identification. Fall risk band placed. Bed ay in low position. Call light in reach. Side rails up X2. 01:25 CT Head C Spine In Process Unspecified. EDMS 02:48 Yakubu, Awudu, RN is Primary Nurse. ay 03:15 Triage completed. ay 03:33 Patient did not have IV access during this emergency room visit. ay Administered Medications: No medications were administered Medication: 01:00 VIS not applicable for this client. ay Outcome: 02:49 Discharge ordered by . ms3 03:33 Discharged to intermediate. Report called to zackary Bashir. ay 03:33 Condition: stable 03:33 Discharge instructions given to intermediate, Instructed on follow up and referral plans. 03:59 Patient left the ED. ay Signatures: Dispatcher [employer] EDMS Jon Jauregui DO DO ms3 Mariam Jaimes [id number] Silvia Dobson, RN RN ay
[2024-08-13 08:44] VITALS: BP 118/84; O2SAT 99
== END 2024-08-13 03:59 | disposition home or self-care (01) ==
LOC: ER 00:51
DX: R91.1 Solitary pulmonary nodule (principal); M54.2 Cervicalgia; R51.9 Headache, unspecified; W18.30XA Fall on same level, unspecified, initial encounter; G30.9 Alzheimer's disease, unspecified; F02.80 Dementia in other diseases classified elsewhere, unspecified severity, without behavioral disturbance, psychotic disturbance, mood disturbance, and anxiety; I10 Essential (primary) hypertension
CPT/HCPCS: 70450; 72125; 99283